=== PATIENT | female | born 2005 | race Caucasian/White ===

== ENCOUNTER 2024-10-22 17:57 | Emergency (ER) | payer OTHER, SELFPAY ==
[2024-10-22 18:00] VITALS: BP 107/75; PULSE 85; RESP 17; TEMP 36.7; O2SAT 99; BMI 34.9
--- NOTE | 2024-10-22 18:22 | ED_ITS ---
Discharge Plan Disposition Patient Disposition: Home, Self-Care Condition: Good Prescriptions Prescriptions: New cephalexin 500 mg capsule 1,000 mg PO BID 7 Days Qty: 28 0RF ondansetron 4 mg tablet,disintegrating 4 mg PO Q6H PRN (Reason: nausea and vomiting) Qty: 10 0RF Referrals Follow up/Referrals: Provider,Referral, MD [Primary Care Provider] - See instructions Activity Restrictions/Add. Instructions Additional Instructions/Restrictions: Call your family doctor to establish care for this visit to the emergency department and schedule follow-up within 48 hours to ensure improvement. If you have any worsening of your condition or any other concerning signs or symptoms, return to the emergency department or your primary care doctor for further evaluation. RED[facility]ELOPMENT SPECIALIST will be able to see the records today and compare them with your visit in a couple of weeks. Maintain follow-up with REDEVELOPMENT SPECIALIST. Be sure that you are taking a daily vitamin that contains iron and folic acid (folate) this will help baby grow without defects. Clinical Impressions Clinical Impression: Nausea and vomiting during Instructions Patient Instructions: DI for Diarrhea and Traveler's Diarrhea -- Adult, DI for Diarrhea and Traveler's Diarrhea -- Child, DI for Nausea -- Adult, DI for Nausea -- Child Print Language Print Language: [place] Discharge ED Provider: Delgado Merino General Adult HPI General Chief complaint: Nausea/Vomiting/Diarrhea Stated complaint: 15 weeks ,N/V,PEREZ Time Seen by Provider: 10/22/24 18:02 History of Present Illness HPI narrative: Please note that above description of symptoms, in this electronic medical record under categorization of recalled from ER triage doctor by RN are reflective of an initial nursing assessment, however, is not reflective of my full history and physical exam that was personally taken and clarified. Consequentially, this preceding description of symptoms, which may include the patient's categorized chief complaint in the EMR, do not reflect my personal clinical impression, and the ultimate description of history of present illness and patient stated complaints should be deferred to this section of the note. Unless stated otherwise or congruent with this section of the note, additional signs, symptoms, or incongruence should be interpreted as inaccurate with my clinical impression. Related Data Previous Rx's ?Medication ?Instructions ?Recorded cephalexin 500 mg capsule 1,000 mg (2 x 500 mg) PO BID 7 10/22/24 days #28 caps ondansetron 4 mg disintegrating 4 mg PO Q6H PRN nausea and 10/22/24 tablet vomiting #10 tabs Allergies Allergy/AdvReac Type Severity Reaction Status Date / Time No Known Allergies Allergy Verified 10/19/24 15:57 PFSH [facility] Disclaimer: The information contained in this section may have been updated after the patient was seen, as this information can be updated by other users. Social History Smoking Status: Never smoker alcohol intake: never current occupational status: unemployed Travel in the last 8 weeks: None ROS Obtained: Yes All systems reviewed & no additional complaints except as documented Physical Exam General General appearance: alert and in no apparent distress Head Head exam: atraumatic and normocephalic Eye Eye exam: Present normal appearance, PERRL and EOMI Neck Neck exam: Present normal inspection, full ROM and trachea midline Respiratory Respiratory exam: Absent respiratory distress, wheezes, stridor, accessory muscle use or prolonged expiratory phase Cardiovascular Cardiovascular exam: Present other (Pulses equal symmetric in upper and lower extremities) Abdominal Exam Abdominal exam: Present soft; Absent distention, tenderness or pulsatile mass Extremities Exam Extremities exam: Absent edema Neurological Exam Neurological exam: Present alert, oriented X3 and CN II-XII intact; Absent motor sensory deficit Skin Skin exam: Present warm and dry; Absent diaphoresis or erythema Medical Decision Making Medical Records Medical records reviewed: Yes I reviewed the patient's medical records. Screening: Per USPSTF and CDC recommendations, given the prevalence of disease in our region, it is our hospital?s policy to screen for HIV and viral Hepatitis for all patients aged 18 and over and those with ongoing risk factors. Maximo Inquiry Pt receiving controlled substance: No Maximo was queried for this patient: No Vital Signs: 10/22/24 18:00 10/22/24 20:29 Temperature 98.1 F 97.9 F Temperature Source Oral Pulse Rate 72 Pulse Rate [Left Radial] 85 Respiratory Rate 17 18 Blood Pressure 128/74 Blood Pressure [Right Arm] 107/75 L Blood Pressure Mean [Right Arm] 85 Blood Pressure Source Automatic Cuff Blood Pressure Source [Right Arm] Automatic Cuff Blood Pressure Position Sitting Blood Pressure Position [Right Arm] Sitting 02 Sat by Pulse Oximetry 99 Oxygen Delivery Method Room Air Room Air Lab Data Lab Results 10/22/24 18:27: Urine Color Yellow, Urine Appearance Clear, Urine pH 6.0, Ur Specific [place] 1.020, Urine Protein Negative, Urine Glucose (UA) Negative, Urine Ketones Negative, Urine Blood Negative, Urine Nitrate Positive A, Urine Bilirubin Negative, Urine Urobilinogen 0.2, Ur Leukocyte Esterase 1+ A, Urine RBC None, Urine WBC 3-5, Ur Squamous Epith Cells 5-10, Ur Transition Epith Cell 3-5, Urine Bacteria 4+ 10/22/24 19:04: WBC 9.1, RBC 3.99 L, Hgb 12.9, Hct 37.1, MCV 93.0, MCH 32.3 H, MCHC 34.8, RDW 11.9, Plt Count 218, MPV 9.7, Neut % (Auto) 57.5, Lymph % (Auto) 30.5, [place] % (Auto) 10.5 H, Eos % (Auto) 0.8, Baso % (Auto) 0.5, Neut # (Auto) 5.2, Lymph # (Auto) 2.8, [place] # (Auto) 1.0, Eos # (Auto) 0.1, Baso # (Auto) 0.1, Sodium 136, Potassium 3.9, Chloride 107, Carbon Dioxide 21 L, Anion Gap 11.9, BUN 7, Creatinine 0.60, Estimated Creat Clear 198, Estimated GFR 127, Est GFR ( Amer) 154, Glucose 95, Calcium 9.2, Total Bilirubin 0.3, AST 22, ALT 14, Alkaline Phosphatase 61, Total Protein 6.9, Albumin 4.0, Globulin 2.9, Albumin/Globulin Ratio 1.4, HCG, Quant [id number] H 10/22/24 19:04 10/22/24 19:04 Orders (Tests/Meds): ED MEDICATIONS Discontinued Medications Generic Name Dose Route Start Last Admin Trade Name Freq PRN Reason Stop Dose Admin Cephalexin HCl 1,000 mg 10/22/24 18:56 10/22/24 19:12 Cephalexin 500mg Capsule PO 10/22/24 18:57 1,000 mg ONCE ONE Administration Ondansetron HCl 4 mg 10/22/24 18:23 10/22/24 19:12 Ondansetron 4mg/2ml Vial IV 10/22/24 18:24 4 mg ONCE ONE Administration ORDERS Category Date Time Status POCUS Point of Care (ER Only) Stat Exams 10/22/24 18:17 Completed CBC w/Auto Diff [Complete Blood Count Auto Diff] Stat Lab 10/22/24 19:04 Completed CMP [Comprehensive Metabolic Panel] Stat Lab 10/22/24 19:04 Completed HCG,Quantitative Stat Lab 10/22/24 19:04 Completed UA [Urinalysis and Microscopic] Stat Lab 10/22/24 18:27 Completed Urine Culture Stat Micro 10/22/24 18:27 Received Medical Decision Narrative: 19-year-old G1, P0 female presenting with vomiting. She states she is about 14 weeks , but is not sure. She was living in [place], now living down here and has not seen REDEVELOPMENT SPECIALIST. Supposed to see them in a couple of weeks. States that she has been vomiting everything I been trying to eat or drink, for the past 2 weeks. No abdominal pain, vaginal bleeding or discharge, has not felt baby move yet. Has not noticed anything that makes it better or worse and has not seen a family doctor regarding of this. History was obtained via conversation with patient. On arrival, patient hemodynamically stable, alert, oriented x4, appropriate, GCS 15, moving all extremities spontaneously, pupils equal and reactive to light. Full physical exam performed and significant for well-appearing female no acute distress. Appears anxious. Physical exam unremarkable, she is nontachycardic, normotensive, abdomen is soft. Lungs are clear and speaking in full sentences. Differential includes hyperemesis gravidarum, urinary tract infection, metabolic abnormality, endocrinologic abnormality, among others. Patient was given IV Zofran for symptomatic management and correction of underlying abnormalities. Workup independently interpreted and significant for nonactionable hematologic labs. Urinalysis with nitrate positive urinary tract infection. Given Keflex for this. Kidney function normal. hCG nearly 132,000. on independent interpretation of imaging, patient has viable intrauterine with heart rate in the 170s. On reevaluation, patient resting comfortably, tolerating ample p.o. intake and very clinically well. Given patient presentation, workup, history, this most likely represents gastritis versus dyspepsia in . Because patient at baseline without signs or symptoms of clinical decompensation, deemed appropriate for discharge. Results were relayed to patient who voiced understanding and were agreeable to outpatient management and follow up. I discussed my clinical impression with patient and answered all questions. At this time, the evidence for any other entities in the differential is insufficient to warrant any further testing or ED observation. This was explained as well. Advisory was given that persistent or worsening symptoms require further evaluation. I confirmed the understanding of this discussion. Travel Cota disclaimer Much of this encounter note is an electronic account executive key accounts spoken language to printed text. Electronic account executive key accounts of the spoken language may permit errors. Although I have reviewed the note, some errors may still exist. Procedures Limited Ultrasound Indication:: Limited OB ultrasound Indication: Positive home test, vomiting Identified structures: -Uterus -Left adnexa -Right adnexa -Pouch of Merlin Findings: Uterus: Definitive IUP with FHR in the 170s Right adnexa: -Normal Left adnexa: -Normal Cul de sac: -free fluid absent Impression: -IUP: Present with fhr in the 170s -Ectopic : Absent -Free fluid: Absent Images were saved to permanent archive The study was technically adequate CPT Transabdominal: 38910-71 This study was performed by me, and I personally interpreted all images/videos. Based on my clinical judgement, these images were adequate and did not necessitate further imaging Critical Care Critical Care Time Critical Care Time: No
[2024-10-22 18:32] LABS: Microscopic, Urine URINE MICROSCOPIC (MICROSCOPIC)
[2024-10-22 18:34] LABS: Appearance,Urine CLEAR (Clear); Bilirubin,Urine Negative (Negative); Blood, Urine Negative (Negative); Color,Urine YELLOW (Yellow); Glucose,Urine (UA) Negative (Negative); Ketones,Urine Negative (Negative); Leukocyte Esterase,Urine 1+ (Negative); Nitrate,Urine POSITIVE (Negative); Protein,Urine Negative (Negative); Urobilinogen,Urine 0.2 EU/dl (0.2)
[2024-10-22 19:12] LABS: Basophils # 0.1 K/mm3 (0-0.2); Basophils % 0.5 % (0.1-2.0); Eosinophils # 0.1 K/mm3 (0.0-0.4); Eosinophils % 0.8 % (0.1-12.0); Hematocrit 37.1 % (37.0-47.0); Hemoglobin 12.9 g/dL (12.2-16.2); Lymphocytes # 2.8 K/mm3 (0.7-4.5); Lymphocytes % 30.5 % (10-50); Mean Corpuscular HGB Conc 34.8 g/dL (31.8-35.4); Mean Corpuscular Hemoglobin 32.3 pg (27.0-31.2); Mean Platelet Volume 9.7 fl (7.4-10.4); Monocytes % 10.5 % (1.7-9.3); Neutrophils # 5.2 K/mm3 (1.8-7.8); Neutrophils % 57.5 % (37.0-80.0); Nucleated Red Blood Cells # 0 10^3/uL; Nucleated Red Blood Cells % 0 %; Platelet Count 218 K/mm3 (142-424); Red Blood Count 3.99 M/mm3 (4.20-5.40); Red Cell Distribution Width 11.9 % (11.5-17.5); Red Cell Distribution Width-SD 40.8 fL; White Blood Count 9.1 K/mm3 (4.5-13.0)
[2024-10-22] MEDS: ONDANSETRON 4MG/2ML VIAL 4 MG IV (19:12)
[2024-10-22] MEDS: cephALEXin 500MG CAPSULE 1000 MG PO (19:12)
[2024-10-22 19:16] LABS: Bacteria,Urine 4+ /lpf
[2024-10-22 19:28] LABS: Chloride 107 mmol/L (98-107); Potassium 3.9 mmoL/L (3.5-5.1); Sodium 136 mmol/L (136-145)
[2024-10-22 19:30] LABS: Blood Urea Nitrogen 7 mg/dl (7-17); Creatinine Clearance Estimated 198 mL/min (50-200); Estimated Glomerular Filt Rate 127 ml/min (>60); GFR (African American) 154 ML/MIN (>60)
[2024-10-22 19:31] LABS: Alanine Aminotransferase 14 U/L (12-78); Albumin/Globulin Ratio 1.4 (1.1-1.8); Alkaline Phosphatase 61 U/L (38-126); Anion Gap 11.9 mEq/L (5-15); Aspartate Amino Transferase 22 U/L (14-36); Bilirubin,Total 0.3 mg/dl (0.2-1.3); Calcium 9.2 mg/dl (8.4-10.2); Carbon Dioxide 21 mmol/L (22.0-30.0); Globulin 2.9 g/dL (1.3-3.2); Glucose 95 mg/dl (74-100); Total Protein,Serum 6.9 g/dl (6.3-8.2)
[2024-10-22 20:29] VITALS: BP 128/74; PULSE 72; RESP 18; TEMP 36.6; O2SAT 96
[2024-10-22 20:45] LABS: HCG,Quantitative 131970 mIU/ml (0-5.42)
--- NOTE | 2024-10-24 16:56 | PC.NURSE ---
URINE CULTURE DISCUSSED WITH DR EARL, NO NEW ORDERS
--- NOTE | 2024-10-27 10:41 | PC.NURSE ---
I spoke with about the pts finalized urine culture results. No changes needed to the pts treatment plan.
--- NOTE | 2024-11-04 13:58 | SW/DCPLANNER ---
I received a phone call from Dr Lang stating that patient does not currently have any running water. Patient is agreeable to community resources. I did reach out to [employer] and they stated they would be speaking w/ patient and [employer] and attempt to provide assistance. I also have a phone call out to the [facility] program. I am waiting to hear back from [facility] regarding services.
== END 2024-10-22 20:32 | disposition home or self-care (01) ==
PROVIDERS: Emergency Provider Emergency Medicine
DX: O21.9 Vomiting of pregnancy, unspecified (principal); O23.42 Unspecified infection of urinary tract in pregnancy, second trimester; Z3A.14 14 weeks gestation of pregnancy
CPT/HCPCS: 80053; 81001; 84702; 85025; 87086; 87088; 87186; 96374; 99284; J2405

== ENCOUNTER 2024-11-05 11:10 | Outpatient (CLI) | payer OTHER, SELFPAY ==
[2024-11-05 11:56] LABS: Basophils % 0.4 % (0.1-2.0); Eosinophils # 0.1 Kmm3 (0.0-0.4); Eosinophils % 1.1 % (0.1-12.0); Hematocrit 34.8 % (37.0-47.0); Hemoglobin 12.4 g/dL (12.2-16.2); Lymphocytes # 2.2 K/mm3 (0.7-4.5); Lymphocytes % 29.9 % (10-50); Mean Corpuscular HGB Conc 35.6 g/dL (31.8-35.4); Mean Corpuscular Hemoglobin 32.7 pg (27.0-31.2); Mean Corpuscular Volume 91.8 fl (81-99); Mean Platelet Volume 10.1 fl (7.4-10.4); Monocytes # 0.5 K/mm3 (0.1-1.0); Monocytes % 6.5 % (1.7-9.3); Neutrophils # 4.5 K/mm3 (1.8-7.8); Neutrophils % 61.7 % (37.0-80.0); Nucleated Red Blood Cells # 0 10^3/uL; Nucleated Red Blood Cells % 0 %; Platelet Count 218 K/mm3 (142-424); Red Blood Count 3.79 M/mm3 (4.20-5.40); Red Cell Distribution Width 11.9 % (11.5-17.5); Red Cell Distribution Width-SD 40.3 fL; White Blood Count 7.3 K/mm3 (4.5-13.0)
[2024-11-05 13:01] LABS: HIV Combo NEGATIVE (Negative)
[2024-11-05 13:08] LABS: Hepatitis C Ab Qual. W/ RFX NEGATIVE (Negative)
[2024-11-05 15:37] LABS: RPR W/RFX Titers Nonreactive (Nonreactive)
[2024-11-06 06:19] LABS: Hepatitis B Surface Antigen Negative (Negative); Rubella Antibodies, IgG <0.90 index (Immune >0.99)
== END 2024-11-05 23:59 | disposition home or self-care (01) ==
LOC: LAB 11:10
PROVIDERS: Visit Provider Obstetrics & Gynecology
DX: Z34.01 Encounter for supervision of normal first pregnancy, first trimester (principal)
CPT/HCPCS: 36415; 85025; 86592; 86762; 86803; 86850; 87340; 87389

== ENCOUNTER 2024-11-09 10:58 | Outpatient (CLI) | payer OTHER, SELFPAY ==
[2024-11-09 13:33] LABS: HCG,Quantitative 83596 mIU/ml (0-5.42)
[2024-11-10 08:16] LABS: Progesterone 13.4 ng/mL (.)
== END 2024-11-09 23:59 | disposition home or self-care (01) ==
LOC: LAB 10:59
PROVIDERS: Visit Provider Obstetrics & Gynecology
DX: Z32.01 Encounter for pregnancy test, result positive (principal)
CPT/HCPCS: 36415; 84144; 84702

== ENCOUNTER 2024-11-16 15:42 | Emergency (ER) | payer OTHER, SELFPAY ==
[2024-11-16] VITALS (14 sets, daily range): BP systolic 91–127; BP diastolic 62–80; PULSE 78–104; RESP 13–23; TEMP 36.7–36.9; O2SAT 97–100; BMI 35.1
--- NOTE | 2024-11-16 15:48 | HMH.EDGENADL ---
Discharge Plan Disposition Patient Disposition: Home, Self-Care Condition: Good Prescriptions Prescriptions: No Action olanzapine [Zyprexa] 5 mg tablet 5 mg PO HS Qty: 30 2RF olanzapine [Zyprexa] 5 mg tablet 5 mg PO DAILY Qty: 30 2RF ondansetron 4 mg tablet,disintegrating 4 mg PO Q6H PRN (Reason: nausea and vomiting) Qty: 10 0RF Referrals Follow up/Referrals: Provider,Referral, MD [Primary Care Provider] - See instructions Activity Restrictions/Add. Instructions Additional Instructions/Restrictions: As we discussed you need to follow-up with both your [facility] PRESIDENT PROCESS as well as your PCP for recheck. I recommend taking your blood pressure several times throughout the day to keep an accurate log. Please try to stay hydrated. If you have any new or worsening signs or symptoms follow-up with your PCP return to the ER as needed. Clinical Impressions Clinical Impression: Near syncope Print Language Print Language: Yemeni Discharge ED Provider: Delgado Merino General Adult HPI <MARC Rousseau - Last Filed: 11/16/24 19:50> General Chief complaint: Dizziness Stated complaint: 12 weeks dizziness,ears roaring Time Seen by Provider: 11/16/24 15:48 History of Present Illness HPI narrative: Patient presents for evaluation of lightheadedness. Patient is 12 weeks . She has not worked since July of this year. 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 She notes that several times she felt lightheaded and dizzy. She had to sit down several times. She never however passed out. She does have a past medical history of anxiety disorder depression disorder bipolar disorder and is on olanzapine and Zofran. She denies any chest pain shortness of breath fever chills hemoptysis nausea vomiting diarrhea. Related Data Previous Rx's ?Medication ?Instructions ?Recorded ondansetron 4 mg disintegrating 4 mg PO Q6H PRN nausea and 10/22/24 tablet vomiting #10 tabs olanzapine 5 mg tablet (Zyprexa) 5 mg PO HS #30 tabs 11/04/24 olanzapine 5 mg tablet (Zyprexa) 5 mg PO DAILY #30 tabs 11/05/24 Allergies Allergy/AdvReac Type Severity Reaction Status Date / Time No Known Allergies Allergy Verified 11/04/24 11:46 PFSH <MARC Rousseau - Last Filed: 11/16/24 19:50> [facility] Disclaimer: The information contained in this section may have been updated after the patient was seen, as this information can be updated by other users. Medical History (Updated 11/16/24 @ 18:06 by MARC Rousseau) Hx of bipolar disorder History of depression Hx of anxiety disorder Hx of borderline personality disorder Surgical History No significant past surgical history Social History Smoking Status: Never smoker alcohol intake: never current occupational status: unemployed Travel in the last 8 weeks?: None Have you lived/traveled outside [place] in past 30 days?: No Contact w/someone who lives/traveled outside US past 30 days?: No Exposure to someone with infectious disease in past 14 days?: No Do you have a fever (greater than 100.4 F or 38 C)?: No Have you tested positive for COVID-19?: No Exposed to someone with COVID-19 in past 14 days?: No Do you have a sore throat?: No Do you have a cough?: No Do you have any weakness?: No Do you have any diarrhea?: No Are you experiencing any unusual bleeding?: No Do you have any muscle aches/pain?: No Do you have any abdominal pain?: No Are you experiencing loss of taste or smell?: No <MARC Rousseau - Last Filed: 11/16/24 19:50> ROS Obtained: Yes Systems reviewed as appropriate & no additional complaints except as documented Physical Exam <MARC Rousseau - Last Filed: 11/16/24 19:50> General General appearance: alert and in no apparent distress Respiratory Respiratory exam: Present normal lung sounds bilaterally Cardiovascular Cardiovascular exam: Present regular rate Neurological Exam Neurological exam: Present alert and oriented X3 Medical Decision Making <MARC Rousseau - Last Filed: 11/16/24 19:50> Medical Records Medical records reviewed: Yes I reviewed the patient's medical records. Screening: Per USPSTF and CDC recommendations, given the prevalence of disease in our region, it is our hospital?s policy to screen for HIV and viral Hepatitis for all patients aged 18 and over and those with ongoing risk factors. Maximo Inquiry Pt receiving controlled substance: No Vital Signs: 11/16/24 15:48 11/16/24 15:50 11/16/24 15:50 Temperature 98.4 F Temperature Source Oral Pulse Rate 98 H 90 Pulse Rate [Right] 104 H Respiratory Rate 18 Blood Pressure 125/78 127/80 Blood Pressure [Right Arm] 125/78 Blood Pressure Mean Blood Pressure Mean [Right Arm] 93 02 Sat by Pulse Oximetry 100 99 99 Oxygen Delivery Method Room Air 11/16/24 16:00 11/16/24 16:10 11/16/24 16:20 Temperature Temperature Source Pulse Rate 86 81 93 H Pulse Rate [Right] Respiratory Rate 20 18 17 Blood Pressure 116/78 110/73 113/79 Blood Pressure [Right Arm] Blood Pressure Mean Blood Pressure Mean [Right Arm] 02 Sat by Pulse Oximetry 99 99 97 Oxygen Delivery Method Room Air 11/16/24 16:30 11/16/24 16:40 11/16/24 16:51 Temperature Temperature Source Pulse Rate 82 78 Pulse Rate [Right] Respiratory Rate 20 19 15 Blood Pressure 117/70 98/71 L 100/63 L Blood Pressure [Right Arm] Blood Pressure Mean Blood Pressure Mean [Right Arm] 02 Sat by Pulse Oximetry 99 98 Oxygen Delivery Method Room Air Room Air 11/16/24 17:00 11/16/24 17:10 11/16/24 17:20 Temperature Temperature Source Pulse Rate 79 Pulse Rate [Right] Respiratory Rate 20 22 Blood Pressure 94/71 L 92/68 L 91/62 L Blood Pressure [Right Arm] Blood Pressure Mean 75 Blood Pressure Mean [Right Arm] 02 Sat by Pulse Oximetry 100 Oxygen Delivery Method Room Air 11/16/24 17:30 11/16/24 17:40 11/16/24 17:40 Temperature Temperature Source Pulse Rate 80 78 79 Pulse Rate [Right] Respiratory Rate 19 23 Blood Pressure 93/65 L 107/69 L 107/69 L Blood Pressure [Right Arm] Blood Pressure Mean 79 Blood Pressure Mean [Right Arm] 02 Sat by Pulse Oximetry 99 100 99 Oxygen Delivery Method Room Air Room Air Room Air 11/16/24 18:12 Temperature 98.0 F Temperature Source Pulse Rate 79 Pulse Rate [Right] Respiratory Rate 13 Blood Pressure 107/79 L Blood Pressure [Right Arm] Blood Pressure Mean Blood Pressure Mean [Right Arm] 02 Sat by Pulse Oximetry Oxygen Delivery Method Lab Data Lab results reviewed: Yes I reviewed the patient's lab results. Lab Results 11/16/24 15:47: Urine Color Yellow, Urine Appearance Sl cloudy, Urine pH 7.0, Ur Specific Truxton 1.020, Urine Protein Negative, Urine Glucose (UA) Negative, Urine Ketones Trace, Urine Blood Negative, Urine Nitrate Negative, Urine Bilirubin Negative, Urine Urobilinogen 1.0, Ur Leukocyte Esterase Trace, Urine RBC 5-10, Urine WBC 10-20, Ur Squamous Epith Cells 20-50, Urine Bacteria 2+, Urine Mucus 1+ 11/16/24 16:38: WBC 10.4, RBC 3.76 L, Hgb 12.2, Hct 35.3 L, MCV 93.9, MCH 32.4 H, MCHC 34.6, RDW 12.2, Plt Count 206, MPV 10.1, Neut % (Auto) 77.0, Lymph % (Auto) 15.4, Sumner % (Auto) 6.4, Eos % (Auto) 0.3, Baso % (Auto) 0.3, Neut # (Auto) 8.0 H, Lymph # (Auto) 1.6, Sumner # (Auto) 0.7, Eos # (Auto) 0.0, Baso # (Auto) 0.0, Sodium 134 L, Potassium 3.9, Chloride 109 H, Carbon Dioxide 23, Anion Gap 5.9, BUN 6 L, Creatinine 0.60, Estimated Creat Clear 199, Estimated GFR 127, Est GFR ( Amer) 154, Glucose 98, Calcium 9.4, Magnesium 1.7, Total Bilirubin 0.4, AST 44 H, ALT 37, Alkaline Phosphatase 54, Total Protein 6.4, Albumin 3.8, Globulin 2.6, Albumin/Globulin Ratio 1.5 11/16/24 16:38 11/16/24 16:38 Orders (Tests/Meds): ED MEDICATIONS Discontinued Medications Generic Name Dose Route Start Last Admin Trade Name Freq PRN Reason Stop Dose Admin Sodium Chloride 1,000 mls @ 999 mls/hr 11/16/24 16:09 11/16/24 16:34 Sod Chlor 0.9% 1000ml Bag IV 11/16/24 17:09 999 mls/hr .Q1H1M ONE Administration Ondansetron HCl 4 mg 11/16/24 16:09 11/16/24 16:34 Ondansetron 4mg/2ml Vial IV 11/16/24 16:10 4 mg ONCE ONE Administration ORDERS Category Date Time Status CBC w/Auto Diff [Complete Blood Count Auto Diff] Stat Lab 11/16/24 16:38 Completed CMP [Comprehensive Metabolic Panel] Stat Lab 11/16/24 16:38 Completed Magnesium Stat Lab 11/16/24 16:38 Completed UA [Urinalysis and Microscopic] Stat Lab 11/16/24 15:47 Completed Urine Culture Stat Micro 11/16/24 15:47 Received Medical Decision Narrative: In summary patient is a 19-year-old female who presents to the emergency department for evaluation of lightheadedness and dizziness. Patient is initially hemodynamically stable with a blood pressure 125/78 heart rate 98 with normal sinus rhythm on the bedside monitor breathing 18 times a minute satting at 100% on room air upon arrival, afebrile at 98.4. Physical exam reveals a well-nourished well-developed overweight 19-year-old female, with a BMI of 35, who otherwise is in no acute distress. Breath sounds clear and equal bilateral to the bases without adventitious sounds, heart sounds are S1-S2 regular rate and rhythm without murmurs gallops rubs or thrills and no dependent edema noted. Abdomen soft nontender no rebound or guarding no rigidity. Bowel sounds normal active. Cranial nerves II through XII intact grossly to exam Guadalupe Coma Score 15. Patient moves all 4 extremities and is neurovascularly intact in all 4 extremities. She has no focal neurologic deficits.. Differential diagnosis includes vasovagal syndrome versus electrolyte abnormality versus cardiac arrhythmia etc. Initial workup will be conducted with hematologic labs urinalysis twelve-lead EKG. Initial interventions include crystalloid bolus and Zofran. Initial workup reviewed by me shows that her white count is 10.4 and her hemoglobin Mattock at 12.2 and 35.3 respectively with an absolute neutrophil count of 8.0 the remainder of her hematologic labs are nonactionable, urinalysis is negative for nitrites positive for ketones and an trace leukocyte Estrace, microscopic exam shows 5-10 red cells 10-20 white cells 20-50 epithelial cells indicating contamination with 2+ bacteria. However patient has no urinary symptoms currently so we will await urine culture results with close follow-up with PCP should she have any dysuria symptoms.. Upon repeat evaluation patient reports feeling better and is actually ambulatory without symptoms and is tolerating oral intake. Given this patient is appropriate for discharge with close follow-up with both [facility]PRENTICE and her PCP. Patient verbalized understanding and agreement. <Delgado Merino MD - Last Filed: 11/16/24 21:34> Vital Signs: 11/16/24 15:48 11/16/24 15:50 11/16/24 15:50 Temperature 98.4 F Temperature Source Oral Pulse Rate 98 H 90 Pulse Rate [Right] 104 H Respiratory Rate 18 Blood Pressure 125/78 127/80 Blood Pressure [Right Arm] 125/78 Blood Pressure Mean Blood Pressure Mean [Right Arm] 93 02 Sat by Pulse Oximetry 100 99 99 Oxygen Delivery Method Room Air 11/16/24 16:00 11/16/24 16:10 11/16/24 16:20 Temperature Temperature Source Pulse Rate 86 81 93 H Pulse Rate [Right] Respiratory Rate 20 18 17 Blood Pressure 116/78 110/73 113/79 Blood Pressure [Right Arm] Blood Pressure Mean Blood Pressure Mean [Right Arm] 02 Sat by Pulse Oximetry 99 99 97 Oxygen Delivery Method Room Air 11/16/24 16:30 11/16/24 16:40 11/16/24 16:51 Temperature Temperature Source Pulse Rate 82 78 Pulse Rate [Right] Respiratory Rate 20 19 15 Blood Pressure 117/70 98/71 L 100/63 L Blood Pressure [Right Arm] Blood Pressure Mean Blood Pressure Mean [Right Arm] 02 Sat by Pulse Oximetry 99 98 Oxygen Delivery Method Room Air Room Air 11/16/24 17:00 11/16/24 17:10 11/16/24 17:20 Temperature Temperature Source Pulse Rate 79 Pulse Rate [Right] Respiratory Rate 20 22 Blood Pressure 94/71 L 92/68 L 91/62 L Blood Pressure [Right Arm] Blood Pressure Mean 75 Blood Pressure Mean [Right Arm] 02 Sat by Pulse Oximetry 100 Oxygen Delivery Method Room Air 11/16/24 17:30 11/16/24 17:40 11/16/24 17:40 Temperature Temperature Source Pulse Rate 80 78 79 Pulse Rate [Right] Respiratory Rate 19 23 Blood Pressure 93/65 L 107/69 L 107/69 L Blood Pressure [Right Arm] Blood Pressure Mean 79 Blood Pressure Mean [Right Arm] 02 Sat by Pulse Oximetry 99 100 99 Oxygen Delivery Method Room Air Room Air Room Air 11/16/24 18:12 Temperature 98.0 F Temperature Source Pulse Rate 79 Pulse Rate [Right] Respiratory Rate 13 Blood Pressure 107/79 L Blood Pressure [Right Arm] Blood Pressure Mean Blood Pressure Mean [Right Arm] 02 Sat by Pulse Oximetry Oxygen Delivery Method Lab Data Lab Results 11/16/24 15:47: Urine Color Yellow, Urine Appearance Sl cloudy, Urine pH 7.0, Ur Specific Truxton 1.020, Urine Protein Negative, Urine Glucose (UA) Negative, Urine Ketones Trace, Urine Blood Negative, Urine Nitrate Negative, Urine Bilirubin Negative, Urine Urobilinogen 1.0, Ur Leukocyte Esterase Trace, Urine RBC 5-10, Urine WBC 10-20, Ur Squamous Epith Cells 20-50, Urine Bacteria 2+, Urine Mucus 1+ 11/16/24 16:38: WBC 10.4, RBC 3.76 L, Hgb 12.2, Hct 35.3 L, MCV 93.9, MCH 32.4 H, MCHC 34.6, RDW 12.2, Plt Count 206, MPV 10.1, Neut % (Auto) 77.0, Lymph % (Auto) 15.4, Sumner % (Auto) 6.4, Eos % (Auto) 0.3, Baso % (Auto) 0.3, Neut # (Auto) 8.0 H, Lymph # (Auto) 1.6, Sumner # (Auto) 0.7, Eos # (Auto) 0.0, Baso # (Auto) 0.0, Sodium 134 L, Potassium 3.9, Chloride 109 H, Carbon Dioxide 23, Anion Gap 5.9, BUN 6 L, Creatinine 0.60, Estimated Creat Clear 199, Estimated GFR 127, Est GFR ( Amer) 154, Glucose 98, Calcium 9.4, Magnesium 1.7, Total Bilirubin 0.4, AST 44 H, ALT 37, Alkaline Phosphatase 54, Total Protein 6.4, Albumin 3.8, Globulin 2.6, Albumin/Globulin Ratio 1.5 Orders (Tests/Meds): ED MEDICATIONS Discontinued Medications Generic Name Dose Route Start Last Admin Trade Name Freq PRN Reason Stop Dose Admin Sodium Chloride 1,000 mls @ 999 mls/hr 11/16/24 16:09 11/16/24 16:34 Sod Chlor 0.9% 1000ml Bag IV 11/16/24 17:09 999 mls/hr .Q1H1M ONE Administration Ondansetron HCl 4 mg 11/16/24 16:09 11/16/24 16:34 Ondansetron 4mg/2ml Vial IV 11/16/24 16:10 4 mg ONCE ONE Administration ORDERS Category Date Time Status CBC w/Auto Diff [Complete Blood Count Auto Diff] Stat Lab 11/16/24 16:38 Completed CMP [Comprehensive Metabolic Panel] Stat Lab 11/16/24 16:38 Completed Magnesium Stat Lab 11/16/24 16:38 Completed UA [Urinalysis and Microscopic] Stat Lab 11/16/24 15:47 Completed Urine Culture Stat Micro 11/16/24 15:47 Received ECG Data Tracing #1: I reviewed this ECG and interpreted as documented below: (Sinus rhythm 88/min with CO 136, QRS 80, QTc 395. Normal axis and no acute ischemic changes. No obvious electrical abnormalities.) Medical Decision Narrative: In summary patient is a 19-year-old female who presents to the emergency department for evaluation of lightheadedness and dizziness. Patient is initially hemodynamically stable with a blood pressure 125/78 heart rate 98 with normal sinus rhythm on the bedside monitor breathing 18 times a minute satting at 100% on room air upon arrival, afebrile at 98.4. Physical exam reveals a well-nourished well-developed overweight 19-year-old female, with a BMI of 35, who otherwise is in no acute distress. Breath sounds clear and equal bilateral to the bases without adventitious sounds, heart sounds are S1-S2 regular rate and rhythm without murmurs gallops rubs or thrills and no dependent edema noted. Abdomen soft nontender no rebound or guarding no rigidity. Bowel sounds normal active. Cranial nerves II through XII intact grossly to exam Guadalupe Coma Score 15. Patient moves all 4 extremities and is neurovascularly intact in all 4 extremities. She has no focal neurologic deficits.. Differential diagnosis includes vasovagal syndrome versus electrolyte abnormality versus cardiac arrhythmia etc. Initial workup will be conducted with hematologic labs urinalysis twelve-lead EKG. Initial interventions include crystalloid bolus and Zofran. Initial workup reviewed by me shows that her white count is 10.4 and her hemoglobin Mattock at 12.2 and 35.3 respectively with an absolute neutrophil count of 8.0 the remainder of her hematologic labs are nonactionable, urinalysis is negative for nitrites positive for ketones and an trace leukocyte Estrace, microscopic exam shows 5-10 red cells 10-20 white cells 20-50 epithelial cells indicating contamination with 2+ bacteria. However patient has no urinary symptoms currently so we will await urine culture results with close follow-up with PCP should she have any dysuria symptoms.. Upon repeat evaluation patient reports feeling better and is actually ambulatory without symptoms and is tolerating oral intake. Given this patient is appropriate for discharge with close follow-up with both [facility]PRENTICE and her PCP. Patient verbalized understanding and agreement. I was consulted by the CED, and we discussed the complexity of the problems being addressed. I approved the treatment and management plan for this patient's care in the Emergency Department, thus performing a substantive portion of the medical decision making. Delgado Merino MD Critical Care <MARC Rousseau - Last Filed: 11/16/24 19:50> Critical Care Time Critical Care Time: No
--- NOTE | 2024-11-16 15:51 | ECG_ITS ---
APPROVED REPORT Exam: Resting ECG HR:88 bpm ECG Measurements Heart Rate 88 AXES SC 136 P 45 QRSd 80 QRS 48 QT 350 T 23 QTc 395 Conclusion Sinus rhythm Electronically signed by : HAWA EARL, 11/16/2024 23:10:20
[2024-11-16 16:14] LABS: Microscopic, Urine URINE MICROSCOPIC (MICROSCOPIC)
[2024-11-16 16:17] LABS: Appearance,Urine SL CLOUDY (Clear); Bilirubin,Urine Negative (Negative); Blood, Urine Negative (Negative); Color,Urine YELLOW (Yellow); Glucose,Urine (UA) Negative (Negative); Ketones,Urine TRACE (Negative); Leukocyte Esterase,Urine TRACE (Negative); Nitrate,Urine Negative (Negative); Protein,Urine Negative (Negative)
[2024-11-16] MEDS: 0.9 % SODIUM CHLORIDE 1000ML 1,000 ML 999 ML IV (16:34)
[2024-11-16] MEDS: ONDANSETRON 4MG/2ML VIAL 4 MG IV (16:34)
[2024-11-16 16:54] LABS: Bacteria,Urine 2+ /lpf; Squamous Epithelial Cell,Urine 20-50 #/hpf (0-5)
[2024-11-16 16:55] LABS: Mucus,Urine 1+ /lpf
[2024-11-16 16:56] LABS: Basophils % 0.3 % (0.1-2.0); Eosinophils % 0.3 % (0.1-12.0); Hematocrit 35.3 % (37.0-47.0); Hemoglobin 12.2 g/dL (12.2-16.2); Immature Granulocytes # 0.06 10^3uL; Immature Granulocytes % 0.6 %; Lymphocytes # 1.6 K/mm3 (0.7-4.5); Lymphocytes % 15.4 % (10-50); Mean Corpuscular HGB Conc 34.6 g/dL (31.8-35.4); Mean Corpuscular Hemoglobin 32.4 pg (27.0-31.2); Mean Corpuscular Volume 93.9 fl (81-99); Mean Platelet Volume 10.1 fl (7.4-10.4); Monocytes # 0.7 K/mm3 (0.1-1.0); Monocytes % 6.4 % (1.7-9.3); Nucleated Red Blood Cells # 0 10^3/uL; Nucleated Red Blood Cells % 0 %; Platelet Count 206 K/mm3 (142-424); Red Blood Count 3.76 M/mm3 (4.20-5.40); Red Cell Distribution Width 12.2 % (11.5-17.5); Red Cell Distribution Width-SD 42.3 fL; White Blood Count 10.4 K/mm3 (4.5-13.0)
[2024-11-16 17:05] LABS: Alanine Aminotransferase 37 U/L (12-78); Albumin Level 3.8 g/dl (3.5-5.0); Albumin/Globulin Ratio 1.5 (1.1-1.8); Alkaline Phosphatase 54 U/L (38-126); Anion Gap 5.9 mEq/L (5-15); Aspartate Amino Transferase 44 U/L (14-36); Bilirubin,Total 0.4 mg/dl (0.2-1.3); Blood Urea Nitrogen 6 mg/dl (7-17); Calcium 9.4 mg/dl (8.4-10.2); Carbon Dioxide 23 mmol/L (22.0-30.0); Chloride 109 mmol/L (98-107); Creatinine Clearance Estimated 199 mL/min (50-200); Estimated Glomerular Filt Rate 127 ml/min (>60); GFR (African American) 154 ML/MIN (>60); Globulin 2.6 g/dL (1.3-3.2); Glucose 98 mg/dl (74-100); Potassium 3.9 mmoL/L (3.5-5.1); Sodium 134 mmol/L (136-145); Total Protein,Serum 6.4 g/dl (6.3-8.2)
[2024-11-16 17:10] LABS: Magnesium 1.7 mg/dl (1.6-2.3)
== END 2024-11-16 18:13 | disposition home or self-care (01) ==
PROVIDERS: Physician Assistant; Emergency Provider Emergency Medicine
DX: O26.811 Pregnancy related exhaustion and fatigue, first trimester (principal); R55 Syncope and collapse; R42 Dizziness and giddiness; Z3A.12 12 weeks gestation of pregnancy
CPT/HCPCS: 80053; 81001; 83735; 85025; 87086; 93005; 96365; 96374; 99284; J2405; J7030

== ENCOUNTER 2024-11-18 09:07 | Emergency (ER) | payer OTHER, SELFPAY ==
[2024-11-18 09:13] VITALS: BP 112/68; PULSE 100; RESP 16; TEMP 36.4; O2SAT 96; BMI 34.9
[2024-11-18 09:22] LABS: Coronavirus 19, PCR Not Detected (NotDetected); Influenza A, PCR Not Detected (NotDetected); Influenza B, PCR Not Detected (NotDetected)
--- NOTE | 2024-11-18 09:30 | ED_ITS ---
Discharge Plan Disposition Patient Disposition: Home, Self-Care Condition: Good Prescriptions Prescriptions: No Action olanzapine [Zyprexa] 5 mg tablet 5 mg PO HS Qty: 30 2RF olanzapine [Zyprexa] 5 mg tablet 5 mg PO DAILY Qty: 30 2RF ondansetron 4 mg tablet,disintegrating 4 mg PO Q6H PRN (Reason: nausea and vomiting) Qty: 60 1RF Referrals Follow up/Referrals: Provider,Referral, MD [Primary Care Provider] - See instructions Activity Restrictions/Add. Instructions Additional Instructions/Restrictions: You were evaluated in the emergency department today. Please take Tylenol at home every 4-6 hours as needed for pain/fever. Orally hydrate is much as possible. Follow-up closely with your primary care provider for reassessment. Return to the emergency department for new or worsening symptoms. Clinical Impressions Clinical Impression: URI (upper respiratory infection) Stand Alone Forms Stand Alone Forms: Work/School Release Instructions Patient Instructions: DI for Viral Upper Respiratory Infection -- Adult Print Language Print Language: Japanese Discharge ED Provider: Shona Quintero General Adult HPI General Chief complaint: Upper Respiratory Infection Stated complaint: Congestion, Sore Throat Time Seen by Provider: 11/18/24 09:18 Mode of Arrival: Ambulatory Source of Information: Patient Description of Symptoms (Recalled from ER Triage Doc. by RN): patient states she has been congested with a cough since friday History of Present Illness HPI narrative: This patient is a 19-year-old female with a history of anxiety, depression, bipolar disorder presenting to the emergency department for evaluation with concern for cough, congestion, and sore throat that started 2 days ago. Patient is currently 13 weeks . She notes she called out of work today because she was not feeling well and they told her she needed a work excuse. She did not take medications prior to arrival. No other concerns or complaints noted at this time. Related Data Previous Rx's ?Medication ?Instructions ?Recorded olanzapine 5 mg tablet (Zyprexa) 5 mg PO HS #30 tabs 11/04/24 olanzapine 5 mg tablet (Zyprexa) 5 mg PO DAILY #30 tabs 11/05/24 ondansetron 4 mg disintegrating 4 mg PO Q6H PRN nausea and 11/17/24 tablet vomiting #60 tabs Allergies Allergy/AdvReac Type Severity Reaction Status Date / Time No Known Allergies Allergy Verified 11/04/24 11:46 [facility] Disclaimer: The information contained in this section may have been updated after the patient was seen, as this information can be updated by other users. Medical History Hx of bipolar disorder History of depression Hx of anxiety disorder Hx of borderline personality disorder Surgical History No significant past surgical history Social History Smoking Status: Never smoker alcohol intake: never current occupational status: unemployed Travel in the last 8 weeks?: None Have you lived/traveled outside US in past 30 days?: No Contact w/someone who lives/traveled outside US past 30 days?: No Exposure to someone with infectious disease in past 14 days?: No Do you have a fever (greater than 100.4 F or 38 C)?: No Have you tested positive for COVID-19?: No Exposed to someone with COVID-19 in past 14 days?: No Do you have a sore throat?: Yes Do you have a cough?: No Do you have any weakness?: No Do you have any diarrhea?: No Are you experiencing any unusual bleeding?: No Do you have any muscle aches/pain?: No Do you have any abdominal pain?: No Are you experiencing loss of taste or smell?: No ROS Obtained: Yes All systems reviewed & no additional complaints except as documented Physical Exam General General appearance: alert and in no apparent distress Head Head exam: atraumatic and normocephalic Eye Eye exam: Present normal appearance, PERRL and EOMI ENT ENT exam: Present normal exam, normal oropharynx, mucous membranes moist and normal external ear exam Neck Neck exam: Present normal inspection, full ROM and trachea midline; Absent ten derness Chest Chest inspection: Present normal inspection and symmetric chest wall rise; Absent tenderness Respiratory Respiratory exam: Present normal lung sounds bilaterally; Absent respiratory distress, wheezes, stridor or accessory muscle use Cardiovascular Cardiovascular exam: Present regular rate and normal rhythm Abdominal Exam Abdominal exam: Present soft; Absent distention, tenderness or guarding Extremities Exam Extremities exam: Present normal inspection, full ROM and normal capillary refill; Absent tenderness or edema Back Exam Back exam: Present normal inspection and full ROM; Absent tenderness Neurological Exam Neurological exam: Present alert, oriented X3, CN II-XII intact and normal gait; Absent motor sensory deficit Psychiatric Psychiatric exam: Present normal affect and normal mood Skin Skin exam: Present warm and dry Medical Decision Making Medical Records Medical records reviewed: Yes I reviewed the patient's medical records. Screening: Per USPSTF and CDC recommendations, given the prevalence of disease in our [facility], it is our hospital?s policy to screen for HIV and viral Hepatitis for all patients aged 18 and over and those with ongoing risk factors. Maximo Inquiry Pt receiving controlled substance: No Vital Signs: 11/18/24 09:13 11/18/24 09:46 Temperature 97.5 F L 98.1 F Temperature Source Oral Oral Pulse Rate 98 H Pulse Rate [Right Radial] 100 H Respiratory Rate 16 15 Blood Pressure 115/68 Blood Pressure [Right Arm] 112/68 Blood Pressure Mean [Right Arm] 82 Blood Pressure Source Automatic Cuff Blood Pressure Source [Right Arm] Automatic Cuff Blood Pressure Position Sitting Blood Pressure Position [Right Arm] Sitting 02 Sat by Pulse Oximetry 96 Oxygen Delivery Method Room Air Room Air Lab Data Lab results reviewed: Yes I reviewed the patient's lab results. Lab Results 11/18/24 09:13: SARS-CoV-2 (PCR) Not detected, Influenza A Untype (PCR) Not detected, Influenza Type B (PCR) Not detected, Group A Strep Rapid Negative Orders (Tests/Meds): ED MEDICATIONS Discontinued Medications Generic Name Dose Route Start Last Admin Trade Name Freq PRN Reason Stop Dose Admin Acetaminophen 1,000 mg 11/18/24 09:29 11/18/24 09:45 Acetaminophen 500mg Tab PO 11/18/24 09:30 1,000 mg ONCE ONE Administration ORDERS Category Date Time Status Rapid PCR Covid and Flu A/B Stat Lab 11/18/24 09:13 Completed Rapid Strep Scrn Group A [Strep Scrn Group A (Rapid)] Lab 11/18/24 09:13 Completed Stat Strep Screen Confirmation Stat Micro 11/18/24 09:13 Received Medical Decision Narrative: In summary, this patient is a 19-year-old female presenting to the Emergency Department for evaluation of sore throat, cough, and congestion. Differential diagnoses considered include but are not limited to viral syndrome, strep pharyngitis, allergic rhinitis, pneumonia. Ruling out the most morbid conditions drove assessment. It should be noted patient's history includes anxiety/depression which may not be at goal therapy. This complicates all aspects of care by increasing patient's risk for morbidity. I reviewed patient's past medical records and noted evaluation here 2 days ago for near syncope, which point workup was reassuring and the patient was discharged home. On exam, the patient is well-appearing. Cardiopulmonary exam is reassuring with no adventitious lung sounds noted. Vitals are normal on cardiac telemetry. She has some mild posterior oropharyngeal erythema but no other concerns noted on exam. I feels likely has a viral syndrome as cause of the constellation of symptoms. Workup included strep swab and COVID/flu swab. She was given oral Tylenol for symptomatic improvement. 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 Strep swab and COVID flu swabs are negative. I feel patient likely has another viral cause of her symptoms. I feel she is appropriate for discharge with instructions for supportive management and close follow-up. Strict return precautions given Critical Care Critical Care Time Critical Care Time: No
[2024-11-18 09:33] LABS: Strep Scrn Group A (Rapid) Negative (Negative)
[2024-11-18] MEDS: ACETAMINOPHEN 500MG TAB 1000 MG PO (09:45)
[2024-11-18 09:46] VITALS: BP 115/68; PULSE 98; RESP 15; TEMP 36.7; O2SAT 99
== END 2024-11-18 09:49 | disposition home or self-care (01) ==
PROVIDERS: Emergency Provider Emergency Medicine
DX: O26.891 Other specified pregnancy related conditions, first trimester (principal); R07.0 Pain in throat; J06.9 Acute upper respiratory infection, unspecified; Z3A.13 13 weeks gestation of pregnancy
CPT/HCPCS: 87430; 87636; 99283

== ENCOUNTER 2024-11-20 14:17 | Emergency (ER) | payer OTHER, SELFPAY ==
[2024-11-20 14:23] VITALS: BP 132/84; PULSE 108; RESP 15; TEMP 36.5; O2SAT 97; BMI 35.1
--- NOTE | 2024-11-20 14:26 | ED_ITS ---
<Statement entered by Cindy Lewis MD - 11/20/24 14:37> I was consulted by the CED, and we discussed the complexity of problems being addressed. I approved the treatment and management plan for this patient's care in the emergency department, thus performing a substantive portion of the medical decision making. Cindy Lewis MD Discharge Plan Disposition Chief Complaint: Upper Respiratory Infection Prescriptions Prescriptions: No Action olanzapine [Zyprexa] 5 mg tablet 5 mg PO HS Qty: 30 2RF olanzapine [Zyprexa] 5 mg tablet 5 mg PO DAILY Qty: 30 2RF ondansetron 4 mg tablet,disintegrating 4 mg PO Q6H PRN (Reason: nausea and vomiting) Qty: 60 1RF Referrals Follow up/Referrals: Provider,Referral, [Primary Care Provider] - See instructions Print Language Print Language: Azerbaijani Discharge ED Provider: Cindy Lewis General Adult HPI General Stated complaint: 13wks. coughing, Sore throat, sneezing, congestion Time Seen by Provider: 11/20/24 14:21 History of Present Illness HPI narrative: This is a 19-year-old female who presents to the ED today for complaint of coughing, sore throat sneezing and congestion. She is concerned about her baby. She says she just coughs so much that she wants to make sure that the baby is fine. She and I discussed interventions that she can do while . She and I discussed swabbing again for strep, flu, COVID but she does not want to do that. She says this was done the other day when she was here. She just wanted to see if there is anything else that could be done. Related Data Previous Rx's ?Medication ?Instructions ?Recorded olanzapine 5 mg tablet (Zyprexa) 5 mg PO HS #30 tabs 11/04/24 olanzapine 5 mg tablet (Zyprexa) 5 mg PO DAILY #30 tabs 11/05/24 ondansetron 4 mg disintegrating 4 mg PO Q6H PRN nausea and 11/17/24 tablet vomiting #60 tabs Allergies Allergy/AdvReac Type Severity Reaction Status Date / Time No Known Allergies Allergy Verified 11/04/24 11:46 PFSH [facility] Disclaimer: The information contained in this section may have been updated after the patient was seen, as this information can be updated by other users. Medical History Hx of bipolar disorder History of depression Hx of anxiety disorder Hx of borderline personality disorder Surgical History No significant past surgical history Social History Smoking Status: Never smoker alcohol intake: never current occupational status: unemployed Travel in the last 8 weeks?: None ROS Obtained: Yes Systems reviewed as appropriate & no additional complaints except as documented Constitutional Constitutional: Reports as per HPI Physical Exam General General appearance: alert and in no apparent distress Head Head exam: atraumatic and normocephalic Eye Eye exam: Present normal appearance, PERRL and EOMI ENT ENT exam: Present normal exam, normal oropharynx and mucous membranes moist Neck Neck exam: Present normal inspection, full ROM and trachea midline Respiratory Respiratory exam: Present normal lung sounds bilaterally Cardiovascular Cardiovascular exam: Present regular rate, normal rhythm, normal heart sounds, +S1 and +S2 Abdominal Exam Abdominal exam: Present soft and normal bowel sounds Extremities Exam Extremities exam: Present normal inspection, full ROM and normal capillary refill Neurological Exam Neurological exam: Present alert, oriented X3 and normal gait Skin Skin exam: Present warm, dry and intact Medical Decision Making Medical Records Screening: Per USPSTF and CDC recommendations, given the prevalence of disease in our region, it is our hospital?s policy to screen for HIV and viral Hepatitis for all patients aged 18 and over and those with ongoing risk factors. Maximo Inquiry Pt receiving controlled substance: No Maximo was queried for this patient: No Medical Decision Narrative: Insert review patient is a 19-year-old female presenting to the emergency department for evaluation of cough, congestion, sore throat. She is 13 weeks . Patient is hemodynamically stable and nontoxic-appearing upon arrival, afebrile. Differential diagnosis includes viral illness, allergies among others. No workup will be conducted as patient and I discussed and she does not want any swabs or testing today. I discussed with patient that she could increase fluids, take Tylenol and Benadryl safely with the . Return to PCP for further problems or concerns or may return to the ED for any worsening symptoms. Safe for discharge home. Critical Care Critical Care Time Critical Care Time: No
[2024-11-20 14:30] VITALS: BP 119/77; PULSE 105; O2SAT 97
[2024-11-20 15:00] VITALS: BP 116/77; PULSE 102; O2SAT 99
[2024-11-20 15:13] VITALS: BP 120/85; PULSE 95; RESP 15; TEMP 37.1; O2SAT 99
== END 2024-11-20 15:15 | disposition home or self-care (01) ==
PROVIDERS: Emergency Provider Student in an Organized Health Care Education/Training Program
DX: O26.891 Other specified pregnancy related conditions, first trimester (principal); R07.0 Pain in throat; R09.81 Nasal congestion; J06.9 Acute upper respiratory infection, unspecified; Z3A.13 13 weeks gestation of pregnancy
CPT/HCPCS: 99282

== ENCOUNTER 2024-12-14 21:44 | Emergency (ER) | payer OTHER, SELFPAY ==
[2024-12-14 21:51] VITALS: BP 135/81; PULSE 81; RESP 16; TEMP 36.6; O2SAT 98; BMI 35.1
--- NOTE | 2024-12-14 22:03 | ED_ITS ---
Discharge Plan Disposition Patient Disposition: Home, Self-Care Prescriptions Prescriptions: No Action olanzapine [Zyprexa] 5 mg tablet 5 mg PO DAILY Qty: 30 2RF ondansetron 4 mg tablet,disintegrating 4 mg PO Q6H PRN (Reason: nausea and vomiting) Qty: 60 1RF Referrals Follow up/Referrals: Provider,Referral, [Primary Care Provider, Medical] - See instructions Activity Restrictions/Add. Instructions Additional Instructions/Restrictions: You have a single living intrauterine with normal heart rate consistent with your dates. The fact that you have no significant abdominal pain right now and that has been coming and going on both sides most likely is consistent with round ligament pain or stretching pain as your grandmother ca lled it. 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 Clinical Impressions Clinical Impression: Second trimester , Pain of round ligament Instructions Patient Instructions: DI for Acute Abdominal Pain Print Language Print Language: South African Discharge ED Provider: Radha Harrison General Adult HPI General Chief complaint: Abdominal Pain Stated complaint: 17 weeks abdominal pain no bleeding Time Seen by Provider: 12/14/24 21:54 Mode of Arrival: Ambulatory Source of Information: Patient Description of Symptoms (Recalled from ER Triage Doc. by RN): Pt presents to ED for abd pain that started approx 1.5 hours ago. Pt denies N/V/D. Pt is A&O*4 and partner is bedside. Pt states the pain is intermittent. History of Present Illness HPI narrative: Patient is a 19-year-old female presents today concerned about her . She is 17 weeks by dates and for trimester ultrasound presents today with lower abdominal discomfort. She states has been coming and going on both sides currently has no symptoms at all. No urinary symptoms burning frequency urgency vaginal bleeding vaginal discharge loss of fluid contractions etc. She states she is just worried about her baby and wanted to make sure that it was okay. Related Data Previous Rx's ?Medication ?Instructions ?Recorded olanzapine 5 mg tablet (Zyprexa) 5 mg PO DAILY #30 tab s 11/05/24 ondansetron 4 mg disintegrating 4 mg PO Q6H PRN nausea and 11/17/24 tablet vomiting #60 tabs Allergies Allergy/AdvReac Type Severity Reaction Status Date / Time No Known Allergies Allergy Verified 11/24/24 13:10 [facility] Disclaimer: The information contained in this section may have been updated after the patient was seen, as this information can be updated by other users. Medical History Hx of bipolar disorder History of depression Hx of anxiety disorder Hx of borderline personality disorder Surgical History No significant past surgical history Social History Smoking Status: Unknown if ever smoked alcohol intake: never current occupational status: unemployed Travel in the last 8 weeks?: None Have you lived/traveled outside US in past 30 days?: No Contact w/someone who lives/traveled outside US past 30 days?: No Exposure to someone with infectious disease in past 14 days?: No Do you have a fever (greater than 100.4 F or 38 C)?: No Have you tested positive for COVID-19?: No Exposed to someone with COVID-19 in past 14 days?: No Do you have a sore throat?: No Do you have a cough?: No Do you have any weakness?: No Do you have any diarrhea?: No Are you experiencing any unusual bleeding?: No Do you have any muscle aches/pain?: No Do you have any abdominal pain?: No Are you experiencing loss of taste or smell?: No ROS Obtained: Yes All systems reviewed & no additional complaints except as documented Physical Exam General General appearance: alert and in no apparent distress Respiratory Respiratory exam: Present normal lung sounds bilaterally Cardiovascular Cardiovascular exam: Present regular rate Abdominal Exam Abdominal exam: Present soft; Absent distention or tenderness Neurological Exam Neurological exam: Present alert and oriented X3 Medical Decision Making Medical Records Screening: Per USPSTF and CDC recommendations, given the prevalence of disease in our region, it is our hospital?s policy to screen for HIV and viral Hepatitis for all patients aged 18 and over and those with ongoing risk factors. Maximo Inquiry Pt receiving controlled substance: No Vital Signs: 12/14/24 21:51 Temperature 97.8 F Temperature Source Oral Pulse Rate [Left] 81 Respiratory Rate 16 Blood Pressure [Right Arm] 135/81 Blood Pressure Mean [Right Arm] 99 02 Sat by Pulse Oximetry 98 Oxygen Delivery Method Room Air Orders (Tests/Meds): ORDERS Category Date Time Status POCUS Point of Care (ER Only) Stat Exams 12/14/24 21:54 Ordered Medical Decision Narrative: 19-year-old female with a completely benign abdominal exam currently and is asymptomatic at the moment has had intermittent and bilateral discomfort most likely round ligament pain. Nonetheless she has no need for emergency evaluation or workup I did do a limited bedside ultrasound which confirms single living IUP and very much reassured the patient. She is stable for outpatient management with her [employer]NAGER OF [employer]ABILITY doctor return precautions emphasized. Procedures Miscellaneous Procedure Procedure Performed: Limited OB ultrasound Indication: Abdominal pain in setting of Identified structures: [-Uterus -Left adnexa -Right adnexa -Pouch of Merlin] Findings: Uterus: Definitive IUP consistent with dates FHR: 153 Right adnexa: No free fluid Left adnexa: No free fluid [place] sac: Free fluid absent Impression: Single living IUP consistent with dates with normal heart rate Images were saved to permanent archive The study was technically adequate CPT Transabdominal: 04635-77 This study was performed by me, and I personally interpreted all images/videos. Based on my clinical judgement, these images were adequate and did not necessitate further imaging. Critical Care Critical Care Time Critical Care Time: No
[2024-12-14 22:08] VITALS: BP 135/81; PULSE 95; RESP 16; TEMP 36.6; O2SAT 98
== END 2024-12-14 22:10 | disposition home or self-care (01) ==
PROVIDERS: Emergency Provider Student in an Organized Health Care Education/Training Program
DX: O26.892 Other specified pregnancy related conditions, second trimester (principal); R10.9 Unspecified abdominal pain; N94.89 Other specified conditions associated with female genital organs and menstrual cycle; Z3A.17 17 weeks gestation of pregnancy
CPT/HCPCS: 99283

== ENCOUNTER 2024-12-17 11:08 | Emergency (ER) | payer OTHER, SELFPAY ==
--- OUTSIDE RECORDS SUMMARY | 2024-09-30 15:06 | XMS_ITS ---
Author Organization [facility] Address [address] [facility] [address] [place] [address] Care Team Providers Care Acupuncture Physician Name Role Phone [place]omondShannan anderson Unavailable [phone] REASON FOR VISIT UTI Medications Medication SIG (Take, Route, Fr equency, Duration) Notes Start Date End Date Status Macrobid 100 MG 1 capsule with food Orally every 12 hrs for 7 days 09/30/2024 Active Social History Sex Assigned At : Social History Observation Description Sex Assigned At Female Encounters Encounter Location Date Provider Diagnosis [address] [place] [address] 09/30/2024 Shannan Ocasio Plan Of Treatment Medication Medication Name Sig Start Date Stop Date Notes Macrobid 100 MG 1 capsule with food Orally every 12 hrs for 7 days 09/30/2024 Progress Notes * Kaitlynn WILLS EDOB:2005 (19 yo F)Acc No.[id number]:09/30/2024 Patient: Kaitlynn GONZALEZ :2005 A ge:19 Y S ex:Female Address:[address] [place] [address], [address], [place], [address] * Refills Start Macrobid Capsule, 100 MG, Orally, 14 Capsule, 1 capsule with food, every 12 hrs, 7 days, Refills=0 * true * Date: Generated for Genesis ng/Faxing/eTransmitting on: 0 12/17/2024 11:21 AM EDT
--- OUTSIDE RECORDS SUMMARY | 2024-11-03 04:40 | XMS_ITS ---
Author Organization [facility] Address [address] [address] Care Team Providers Care Pharmacist'S Aide Name Role Phone Shannan Ocasio Unavailable [phone] REASON FOR VISIT US OB Dating Social History Sex Assigned At : Social History Observation Description Sex Assigned At Female Encounters Encounter Location Date Provider Diagnosis Ultrasound [facility] [address] [place] [address] 11/03/2024 Shannan Ocasio Plan Of Treatment No Information Progress Notes * Kaitlynn WILLS EDOB:2005 (19 yo F)Acc No.[id number]:11/03/2024 Patient: Kaitlynn GONZALEZ Provider: Harsh Ocasio MD :2005 A ge:19 Y S ex:Female Date:11/03/2024 Address:[address] [place] [address], [address], [id number] Subjective: * Chief Complaints: * 1 . US OB Dating. * Medical History: Objective: * Vitals: Assessment: Plan: * Treatment: * Billing Information: * Visit Code: * Procedure Codes: * Electronic signature of No Ocasio MD on 12/17/2024 at 11:21 AM EDT Sign off status: Pending Visit Status: C ANC (Cancelled) * Provider: Harsh Ocasio MD Date: 0 11/03/2024 Generated for Genesis hammond/Ivet/Nikoitting on: 0 12/17/2024 11:21 AM EDT
--- OUTSIDE RECORDS SUMMARY | 2024-11-03 05:00 | XMS_ITS ---
Author Organization [facility] Address [address] [facility] [address] [place] [address] Care Team Providers Care Landing Worker Name Role Phone Shannan Ocasio Unavailable [phone] REASON FOR VISIT US OB Dating, ACOG, labs Social History Sex Assigned At : Social History Observation Description Sex Assigned At Female Encounters Encounter Location Date Provider Diagnosis [address] [place] [address] 11/03/2024 Shannan Ocasio Plan Of Treatment No Information Progress Notes * Kaitlynn WILLS EDOB:2005 (19 yo F)Acc No.[id number]:11/03/2024 Progress Note Patient: Kaitlynn GONZALEZ Provider: Harsh Ocasio MD :2005 A ge:19 Y S ex:Female Date:11/03/2024 Address:[address] [place] [address], [address], [place], [id number] Subjective: * Chief Complaints: * 1 . US OB Dating, ACOG, labs. * Medical History: Objective: * Vitals: Assessment: Plan: * Treatment: * Billing Information: * Visit Code: * Procedure Codes: * Electronic signature of No Ocasio MD on 12/17/2024 at 11:21 AM EDT Sign off status: Pending Visit Status: C ANC (Cancelled) * Provider: Harsh Ocasio MD Date: 0 11/03/2024 Generated for Genesis hammond/Ivet/Sy on: 0 12/17/2024 11:21 AM EDT
[2024-12-17 11:17] VITALS: BP 127/80; PULSE 104; RESP 14; TEMP 36.8; O2SAT 98; BMI 34.9
[2024-12-17 11:17] LABS: Microscopic, Urine URINE MICROSCOPIC (MICROSCOPIC)
--- OUTSIDE RECORDS SUMMARY | 2024-12-17 11:21 | XMS_ITS | Patient Health Record ---
Author Organization [facility] Address [address] [place] [address] Care Team Providers Care Train Dispatcher Name Role Phone Shannan Ocasio Unavailable [phone] YokoPamela Unavailable [phone] Allergies No Known Allergies Results Component Value Reference Range Notes Chlamydia/Gonorrhea, CLINTON (Ap sahron/PAP) Reviewed date:07/21/2024 06:23:09 PM Interpretation:Normal Performing Lab:Natasha CROSS [facility] - [place] CLIA ID [id number], [address], [address], [place] [address], Director - Feroz Michael MD Notes/Report: Chlamydia Trachomatis Negative Negative Neisseria Gonorrhoeae Negative Negative Urine Reviewed date:07/20/2024 12:27:40 PM Interpretation:Negative Performing Lab: Notes/Report: Chlamydia/Gonorrhea, CLINTON (Ap sharon/PAP) Reviewed date:09/29/2024 08:27:44 AM Interpretation:Normal Performing Lab: Notes/Report: [facility] Testing performed at: [=G] [address], [address], , Scalping Machine Operator: Maria Teresa Villanueva MD Chlamydia trachomatis, CLINTON Negative Negative Neisseria gonorrhoeae, CLINTON Negative Negative Drug Profile Screen, Urine Reviewed date:10/01/2024 05:14:50 PM Interpretation:Normal Performing Lab: Notes/Report: [facility] performed at: [UI] [facility], [address] [facility] [address], [place], [address], , Scalping Machine Operator: Marbella Corrales, PhD Testing performed at: [CB] [facility], [address], [place], [address], , Scalping Machine Operator: Vignesh Manuel, PhD QNS: UNABLE TO COMPLETE TEST Amphetamines Screen, Urine Negative Gksesy=0663 ng/mL Barbiturates Screen, Urine Negative Owfxtv=488 ng/mL Benzodiazepines Screen, Urine Negative Teuigs=771 ng/mL Cannabinoid Screen, Urine See Final Results Cutoff=20 ng/mL Cannabinoid Test Not Performed. Test not performed. Insufficient specimen to perform or complete analysis. Cocaine (Metab.) Screen, Urine Negative Mwrdag=657 ng/mL Opiate Screen, Urine Negative Purqmm=269 ng/mL Opi ate test includes Codeine, Morphine, Hydromorphone, Hydrocodone. Oxycodone/Oxymorphone, Urine Negative Qfjqut=344 ng/mL Test includes Oxycod one and Oxymorphone Phencyclidine Screen, Urine Negative Cutoff=25 ng/mL Methadone Screen, Urine Negative Oolagm=832 ng/mL Propoxyphene Screen, Urine Negative Yzprxh=058 ng/mL Meperidine Screen, Urine Negative Oapbww=885 ng/mL This test was developed and its performance characteristics determined by [employer]. It has not been cleared or approved by the Food and Drug Administration. Tramadol Screen, Urine Negative Vshqsm=054 ng/mL Fentanyl, Urine Negative Idkmbr=6134 pg/mL Test includes Fentanyl and Norfentanyl This test was developed and its performance characteristics determined by [employer]. It has not been cleared or approved by the Food and Drug Administration. Buprenorphine, Urine Negative Cutoff=10 ng/mL Creatinine, Urine 163.5 20.0-300.0 mg/dL Specific [place] 1.019 pH, Urine 7.4 4.5-8.9 Please Note: Comment Drug test results should be interpreted in the context of clinical information. Patient metabolic variables, specific drug chemistry, and specimen characteristics can affect test outcome. Technical consultation is available if a test result is inconsistent with an expected outcome. Email: [email or web address] Drug brands, if listed herein, are trademarks of their respective owners. Urine Culture and Sensitivit y Reviewed date:09/30/2024 07:08:46 PM Interpretation:Abnormal Performing Lab: Notes/Report: [email or web address] Testing performed at: [CB] [email or web address], [address], , Scalping Machine Operator: Vignesh Manuel, PhD Urine Culture, Routine Final report Result 1 Escherichia coli Cefazolin with an NITHYA <=16 predicts susceptibility to the oral agents cefaclor, cefdinir, cefpodoxime, cefprozil, cefuroxime, cephalexin, and loracarbef when used for therapy of uncomplicated urinary tract infections due to E. coli, Klebsiella pneumoniae, and Proteus mirabilis. Greater than 100,000 colony forming units per mL Antimicrobial Susceptibility Comment S = Susceptible; I = Intermediate; R = Resistant P = Positive; N = Negative MICS are expressed in micrograms per mL Antibiotic RSLT#1 RSLT#2 RSLT#3 RSLT#4 Amoxicillin/Clavulanic Acid S Ampicillin S Cefazolin S Cefepime S Cefoxitin S Cefpodoxime S Ceftriaxone S Ciprofloxacin S Ertapenem S Gentamicin S Levofloxacin S Meropenem S Nitrofurantoin S Piperacillin/Tazobactam S Tetracycline S Tobramycin S Trimethoprim/Sulfa S Urine Reviewed date:09/27/2024 04:50:48 PM Interpretation:Positive Performing Lab: Notes/Report: Specimen Status Report Reviewed date:10/01/2024 05:14:50 PM Interpretation: Performing Lab: Notes/Report: [facility] Testing performed at: [UI] [facility], [address] [facility] [facility] [address], [place], [address], , Scalping Machine Operator: Marbella Corrales, PhD Testing performed at: [CB] [email or web address], [address] [place] [address], [address], , Scalping Machine Operator: Vignesh Manuel, PhD QNS: UNABLE TO COMPLETE TEST Specimen Status Report Test Not Performed. Test not performed. Insufficient specimen to perform or complete analysis. TEST: [id number] Carboxy THC Conf, MS, UR Panel: [id number] Reason For Referral No Information Medications Medication SIG (Take, Route, Fr equency, Duration) Notes Start Date End Date Status Macrobid 100 MG 1 capsule with food Orally every 12 hrs for 7 days 09/30/2024 Active Paliperidone ER 3 MG 1 tablet in the mor linnea Orally Once a day for 30 day(s) 07/20/2024 Active Social History Tobacco Use: Social History Observation Description Date Details (start date - stop date) Never Smoker NA - NA Sex Assigned At : Social History Observation Description Sex Assigned At Female AUDIT-C (Standard) Question Answer Notes Did you have a drink containing alcohol in the p ast year? No Tobacco Control (Standard) Question Answer Notes Tobacco use: Nonsmoker Problems Problem Type SNOMED Code ICD Code Onset Dates Problem Status W/U Status Risk Notes Problem [id number] Personality disorder (F60.9) Active confirmed Vital Signs Blood pressure diastolic 74 mm Hg 09/27/2024 Height 5FT 1IN in 09/27/2024 Blood pressure systolic 112 mm Hg 09/27/2024 Weight 184 lbs 09/27/2024 BMI 34.76 kg/m2 09/27/2024 Encounters Encounter Location Date Provider Diagnosis [address] Int[address] [facility] [address] [place] [address] 08/20/2024 Shannan Ocasio [address] [place] [address] 09/30/2024 Shannan Ocasio [facility] [address] [facility] [address] [place] [address] 07/19/2024 Pamela Babcock [facility] [address] [facility] [address] [place] [address] 08/19/2024 Pamela Babcock [facility] [address] [place] [address] [address] [place] [address] 09/27/2024 Shannan Ocasio Encounter for test, result unknown Z32.00 and Encounter for other specified screening Z36.89 [place] [address] [facility] [address] [place] [address] 07/20/2024 Pamela Munsonvall Watch Assembler exam without abnormal findings Z01.419 ; Encounter for test, result unknown Z32.00 ; Personality disorder F60.9 and Routine screening for STI (sexually transmitted infection) Z11.3 Assessments Encounter Date Diagnosis (ICD Code) Assessment Notes Treatment Notes Treatment Clinical Notes Section Notes 07/20/2024 Encounter for test, result unknown (ICD-10 - Z32.00) 07/20/2024 Watch Assembler exam without abnormal findings (ICD-10 - Z01.419) 09/27/2024 Encounter for test, result unknown (ICD-10 - Z32.00) 09/27/2024 Encounter for other specified screening (ICD-10 - Z36.89) 07/20/2024 Personality disorder (ICD-10 - F60.9) 07/20/2024 Routine screening for STI (sexually transmitted infection) (ICD-10 - Z11.3) Plan Of Treatment Future Test Test Name Order Date Blood Type ABO, RH and Antibody Screen 0 09/27/2024 CBC 09/27/2024 Hepatitis B Surface Antigen 09/27/2024 Hepatitis C Virus AB 09/27/2024 HIV-1/2 Antigen and Antibodies, 4th Gene ration 09/27/2024 Rubella Antibodies, IgG 09/27/2024 Syphilis T Pallidium Screening Routt 0 09/27/2024 *US OB Complete greater than 14 Weeks Tr ansabdominal 09/27/2024 Medical (General) History Medical History History ICD Code Anxiety DEPRESSION UTI-needs [facility] @ [facility]
--- OUTSIDE RECORDS SUMMARY | 2024-12-17 11:21 | XMS_ITS | Referral Summary ---
Author Organization [facility] Address [address] [place] [address] Care Team Providers Care Contact Acid Plant Operator Name Role Phone Ailyn Rivera MD Primary Care Provid er Encounters Date Type Department Care Team Description 09/28/2024 8:15 AM EDT Office Visit [facility] [address] [place] [address], [address] [place] [address] Ailyn Rivera MD [facility] physical exam (Primary Dx); Obesity, Class II, BMI 35-39.9; 10 weeks gestation of ; Borderline personality disorder (HCC) from Last 3 Months Allergies No known active allergies Medications Paliperidone Palmitate ER (INVEGA HAFYERA) 1560 MG/5ML BROOK Inject into a large muscle. Active Active Problems Problem Noted Date Diagnosed Date Borderline personality disorder 09/28/2024 Estimated Date of Delivery Comme nts Yes 04/25/2025 Immunizations Immunization Administration Dates Next Due COVID-19 mRNA Vaccine (Pfize r EUA 12+) Purple Cap 11/08/2020,10/14/2020 Diphtheria, Tetanus, and Per tussis (DTaP) 11/02/2008,10/29/2007,04/08/2006,10/05,2004 Hepatitis B Vaccine, Unspecified 04/08/2006,09/12,2004 Hib PRP-T conjugate, IM (Act HIB, Hiberix) 04/08/2006,2004,2004 Human Papillomavirus 9-Hannah t (Gardasil 9) 02/09/2021,09/04/2020,06/05/2020 Influenza Vaccine, Recombina nt Trivalent PF (Flublok) 07/06/2024 Influenza Virus Vaccine Quad rivalent (Flucelvax) Injection 06/26/2021 Measles/Mumps/Rubella, SQ 11/02/2006,04/08/2006 Meningococcal Polysaccharide ACWY-135 DT-Conj (MENACTRA) 03/20/2016 Pneumococcal Conjugate (PCV1 3) Prevnar 13 10/29/2007,04/08/2006,2004,08/07 Poliovirus Inactivated, IM/SQ 11/02/2008 ,04/08/2006,2004,08/07 Tdap (Tetanus, Diphtheria & Pertussis) 0 03/20/2016,11/02/2008,10/29/2007,04/08,2004,2004 Varicella, Live Attenuated (Varivax) 11/02/2008, 04/08/2006 Social History Tobacco Use Types Packs/Day Years Used Date Smoking Tobacco: Never Smokeless Tobacco: Never Alcohol Use Standard Drinks/Week Comments Not Currently 0 (1 standard drink = 0.6 oz pur e alcohol) Estimated Date of Delivery Comme nts Yes 04/25/2025 Sex and Gender Information Value Date Recorded Sex Assigned at Not on file Legal Sex Female 11:16 AM EDT Gender Identity Not on file Sexual Orientation Not on file Last Filed Vital Signs Vital Sign Reading Time Taken Comments Blood Pressure 100/66 09/28/2024 8:10 AM EDT Pulse 107 09/28/2024 8:10 AM EDT Temperature 36.3 C (97.3 F) 09/28/2024 8:10 AM EDT Respiratory Rate 16 07/13/2024 11:49 AM EST Oxygen Saturation 98% 09/28/2024 8:10 AM EDT Inhaled Oxygen Concentration - - Weight 84 kg (185 lb 4 oz) 09/28/2024 8:10 AM ED T Height 154.9 cm (5' 1 ) 09/28/2024 8:10 AM EDT Body Mass Index 35 09/28/2024 8:10 AM EDT Plan of Treatment Not on file Care Teams Contact Acid Plant Operator Relationship Specialty Start Date End Date Ailyn Rivera MD PCP - General Internal Medicine 07/06/24
--- OUTSIDE RECORDS SUMMARY | 2024-12-17 11:21 | XMS_ITS | Clinical Summary ---
Author Organization [facility] Address [address] [place] [address] Care Team Providers Care Claim Review Medical Director Name Role Phone Ailyn Rivera MD Primary Care Provid er Allergies No known active allergies Medications Paliperidone Palmitate ER (INVEGA HAFYERA) 1560 MG/5ML BROOK Inject into a large muscle. Active Active Problems Problem Noted Date Diagnosed Date Borderline personality disorder 09/28/2024 Estimated Date of Delivery Comme nts Yes 04/25/2025 Encounters Date Type Department Care Team Description 09/28/2024 8:15 AM EDT Office Visit [address], [address] [place] [address] iAlyn Rivera MD [facility] physical exam (Primary Dx); Obesity, Class II, BMI 35-39.9; 10 weeks gestation of ; Borderline personality disorder (HCC) from Last 3 Months Immunizations Immunization Administration Dates Next Due COVID-19 [...] 03/20/2016,11/02/2008,10/29/2007,04/08,2004,2004 Varicella, Live Attenuated (Varivax) 11/02/2008, 04/08/2006 Family History Medical History Relation Name Comments Aortic aneurysm Father Relation Name Status Comments Father Half-Sister Alive Maternal Grandfather Alive Maternal Grandmother Alive Mother Alive Paternal Grandfather Paternal Grandmother Social History Tobacco Use Types Packs/Day Years [...] 09/28/2024 8:10 AM EDT Plan of Treatment Health Maintenance Due Date Last Done Comments Meningococcal B (MenB) (1 of 2 - Standard) 2020 COVID-19 Vaccine (3 - season) 2024 11/08/2020, 10/14/2020 RSV Vaccine (60+ or ) (1 - Risk 1-dose series) 03/14/2025 DTap,Tdap,and Td (7 - Td or Tdap) 03/20/2026 03/20/2016, 11/02/2008, 11/02/2008, Additional history exists Pneumococcal 0-49 Completed 10/29/2007, , 2004, Additional history exists VARIVAX Completed 11/02/2008, 04/08/2006 Meningococcal conjugate valent 4 (MCV4) Aged Out 03/20/2016 No longer eligible based on patient's age to complete this topic HPV Completed 02/09/2021, 08/15, 06/05/2020 Influenza Vaccine Completed 07/06/2024, 06/26/2021 RSV Immunization (<20 months) Aged Out No longer eligible based on patient's age to complete this topic Care Teams Claim Review Medical Director Relationship Specialty Start Date End Date Ailyn Rivera MD PCP - General Internal Medicine 07/06/24
[2024-12-17 11:29] VITALS: BP 117/66; PULSE 104; O2SAT 99
[2024-12-17 11:29] LABS: Appearance,Urine CLOUDY (Clear); Bilirubin,Urine Negative (Negative); Blood, Urine Negative (Negative); Color,Urine YELLOW (Yellow); Glucose,Urine (UA) Negative (Negative); Ketones,Urine Negative (Negative); Leukocyte Esterase,Urine 1+ (Negative); Nitrate,Urine Negative (Negative); Protein,Urine Negative (Negative); Specific Gravity, Urine 1.015 (1.005-1.030); Urobilinogen,Urine 0.2 EU/dl (0.2)
[2024-12-17 11:47] LABS: Bacteria,Urine 3+ /lpf
--- NOTE | 2024-12-17 11:59 | ED_ITS ---
Discharge Plan Disposition Patient Disposition: Home, Self-Care Condition: Good Prescriptions Prescriptions: New cetirizine [Zyrtec] 10 mg tablet 10 mg PO DAILY Qty: 30 0RF fluticasone propionate [Flonase Allergy Relief] 50 mcg/actuation spray,suspension 1 spray intranasal DAILY Qty: 16 0RF Rx Instructions: administer into each nostril cefdinir 300 mg capsule 300 mg PO BID 5 Days Qty: 10 0RF No Action olanzapine [Zyprexa] 5 mg tablet 5 mg PO DAILY Qty: 30 2RF ondansetron 4 mg tablet,disintegrating 4 mg PO Q6H PRN (Reason: nausea and vomiting) Qty: 60 1RF Referrals Follow up/Referrals: Jessica Lang DO [Staff Physician, HEAD RIGGER] - See instructions Provider,Referral, MD [Primary Care Provider, Medical] - See instructions Activity Restrictions/Add. Instructions Additional Instructions/Restrictions: You were evaluated in the emergency department today. For your cough, I am prescribing you Flonase and Zyrtec to help dry up any postnasal drip/secretions. You do have bacteria in your urine, so we are treating you with cefdinir. Please seed cone picker the prescription for this and take as prescribed. Follow-up very closely with OB as well as with your primary care provider. Return to the emergency department for new or worsening symptoms. Clinical Impressions Clinical Impression: Asymptomatic bacteriuria during , Abdominal cramping, Cough Stand Alone Forms Stand Alone Forms: Work/School Release Instructions Patient Instructions: DI for Cough -- Adult, DI for Abdominal Pain -- Early Print Language Print Language: Vietnamese Discharge ED Provider: Shona Quintero General Adult HPI General Chief complaint: PAIN Stated complaint: 17 weeks -abd pain Time Seen by Provider: 12/17/24 11:34 Mode of Arrival: Ambulatory Source of Information: Patient Description of Symptoms (Recalled from ER Triage Doc. by RN): pt states around 0100 she was laying in bed and her approximately 40lb dog jumped in bed on her abd. pt c/o soreness in her abd that is 3/10. pt reports she is a pt of and is 17wks . pt denies vaginal bleeding or other symptoms. pt denies any complications with her . History of Present Illness HPI narrative: This patient is a 19-year-old G1, P1 at estimated 17 weeks gestation presenting to the emergency department for evaluation with concern for abdominal pain after her dog jumped on her abdomen on her bed around 1:00 this morning. She states the dog is 40 pounds. She states that she has some lower abdominal cramping and soreness right where the dog jumped on her that is 3 out of 10. No abnormal vaginal bleeding or leakage of fluid. She also does note that she has had some cough and congestion for about a month and a half, she is not sure if his allergies to what it may be. She states she is mostly coughing up white sputum. No other concerns or complaints noted at this time. Related Data Previous Rx's ?Medication ?Instructions ?Recorded olanzapine 5 mg tablet (Zyprexa) 5 mg PO DAILY #30 tab s 11/05/24 ondansetron 4 mg disintegrating 4 mg PO Q6H PRN nausea and 11/17/24 tablet vomiting #60 tabs cefdinir 300 mg capsule 300 mg PO BID 5 days #10 cap s 12/17/24 cetirizine 10 mg tablet (Zyrtec) 10 mg PO DAILY #30 ta bs 12/17/24 fluticasone propionate 50 1 spray intranasal DAILY #16 grams 12/17/24 mcg/actuation nasal spray,suspension (Flonase Allergy Relief) Allergies Allergy/AdvReac Type Severity Reaction Status Date / Time No Known Allergies Allergy Verified 12/17/24 11:39 [facility] Disclaimer: The information contained in this section may have been updated after the patient was seen, as this information can be updated by other users. Medical History Hx of bipolar disorder History of depression Hx of anxiety disorder Hx of borderline personality disorder Surgical History No significant past surgical history Social History Smoking Status: Never smoker alcohol intake: never current occupational status: unemployed Travel in the last 8 weeks?: None Have you lived/traveled outside US in past 30 days?: No Contact w/someone who lives/traveled outside US past 30 days?: No Exposure to someone with infectious disease in past 14 days?: No Do you have a fever (greater than 100.4 F or 38 C)?: No Have you tested positive for COVID-19?: No Exposed to someone with COVID-19 in past 14 days?: No Do you have a sore throat?: No Do you have a cough?: No Do you have any weakness?: No Do you have any diarrhea?: No Are you experiencing any unusual bleeding?: No Do you have any muscle aches/pain?: No Do you have any abdominal pain?: Yes Are you experiencing loss of taste or smell?: No ROS Obtained: Yes All systems reviewed & no additional complaints except as documented Physical Exam General General appearance: alert and in no apparent distress Head Head exam: atraumatic and normocephalic Eye Eye exam: Present normal appearance, PERRL and EOMI ENT ENT exam: Present normal exam, normal oropharynx, mucous membranes moist and normal external ear exam Neck Neck exam: Present normal inspection, full ROM and trachea midline; Absent tenderness Chest Chest inspection: Present normal inspection and symmetric chest wall rise; Abs ent tenderness Respiratory Respiratory exam: Present normal lung sounds bilaterally; Absent respiratory distress, wheezes, stridor or accessory muscle use Cardiovascular Cardiovascular exam: Present regular rate and normal rhythm Abdominal Exam Abdominal exam: Present soft; Absent distention, tenderness or guarding Extremities Exam Extremities exam: Present normal inspection, full ROM and normal capillary refill; Absent tenderness or edema Back Exam Back exam: Present normal inspection and full ROM; Absent tenderness Neurological Exam Neurological exam: Present alert, oriented X3, CN II-XII intact and normal gait; Absent motor sensory deficit Psychiatric Psychiatric exam: Present normal affect and normal mood Skin Skin exam: Present warm and dry Medical Decision Making Medical Records Medical records reviewed: Yes I reviewed the patient's medical records. Screening: Per USPSTF and CDC recommendations, given the prevalence of disease in our region, it is our hospital?s policy to screen for HIV and viral Hepatitis for all patients aged 18 and over and those with ongoing risk factors. Maximo Inquiry Pt receiving controlled substance: No Vital Signs: 12/17/24 11:17 Temperature 98.2 F Temperature Source Oral Pulse Rate [Left] 104 H Respiratory Rate 14 Blood Pressure [Right Arm] 127/80 Blood Pressure Mean [Right Arm] 95 Blood Pressure Source [Right Arm] Automatic Cuff Blood Pressure Position [Right Arm] Sitting 02 Sat by Pulse Oximetry 98 Oxygen Delivery Method Room Air Lab Data Lab results reviewed: Yes I reviewed the patient's lab results. Lab Results 12/17/24 11:13: Urine Color Yellow, Urine Appearance Cloudy, Urine pH 7.0, Ur Specific [place] 1.015, Urine Protein Negative, Urine Glucose (UA) Negative, Urine Ketones Negative, Urine Blood Negative, Urine Nitrate Negative, Urine Bilirubin Negative, Urine Urobilinogen 0.2, Ur Leukocyte Esterase 1+ A, Urine RBC None, Urine WBC 3-5, Ur Squamous Epith Cells 3-5, Urine Bacteria 3+ Orders (Tests/Meds): ORDERS Category Date Time Status POCUS Point of Care (ER Only) Stat Exams 12/17/24 11:35 Ordered UA [Urinalysis and Microscopic] Stat Lab 12/17/24 11:13 Completed Urine Culture Stat Micro 12/17/24 11:13 Received Medical Decision Narrative: In summary, this patient is a 19-year-old female presenting to the Emergency Department for evaluation of lower abdominal cramping after her dog jumped on her belly last night. She 17 weeks . Differential diagnoses considered include but are not limited to musculoskeletal strain/sprain, abdominal contusion, placental abruption. Ruling out the most morbid conditions drove assessment. I reviewed patient's past medical records and noted prior outpatient ultrasounds and OB evaluation. I also noted that the patient has had prior type and screen and is Rh+, no indication for RhoGAM. On exam, the patient has benign abdominal exam with no significant tenderness. OB ultrasound was performed that demonstrates good movement, good amount of amniotic fluid, no obvious acute concerns. heart rate is 160, within normal limits. Urinalysis was obtained that demonstrates no significant protein. Patient does have 3+ bacteria, though slightly contaminated with squamous cells. Will treat as asymptomatic bacteriuria in . Patient also complains of a month and a half of cough with no increased work of breathing, normal lung sounds on exam. Is possible this could be postnasal drip from allergic rhinitis, she does note issues with allergies. For bacteriuria, I prescribed cefdinir. For her URI type symptoms, I prescribed Flonase and Zyrtec. At this time, I feel that she is appropriate for discharge home. She is given instructions for close follow-up with OB as well as PCP and strict return precautions. Procedures Limited Ultrasound Findings:: Limited OB ultrasound Indication: Abdominal pain in Identified structures: Uterus Findings: Uterus: Definitive IUP, good movement, good amount of amniotic fluid FHR: 160 Impression: -IUP: Present, good movement, good amount of amniotic fluid - heart rate: 160 -Ectopic : Absent -Free fluid: Absent Images were saved to permanent archive The study was technically adequate CPT Transabdominal: 50617-44 This study was performed by me, and I personally interpreted all images/videos. Based on my clinical judgement, these images were adequate and did not necessitate further imaging. Critical Care Critical Care Time Critical Care Time: No
[2024-12-17 12:14] VITALS: BP 117/66; PULSE 104; RESP 19; TEMP 36.7; O2SAT 99
== END 2024-12-17 12:14 | disposition home or self-care (01) ==
PROVIDERS: Emergency Provider Emergency Medicine
DX: O26.892 Other specified pregnancy related conditions, second trimester (principal); R10.30 Lower abdominal pain, unspecified; R82.71 Bacteriuria; Z3A.17 17 weeks gestation of pregnancy
CPT/HCPCS: 81001; 87086; 99283

== ENCOUNTER 2024-12-21 16:20 | Emergency (ER) | payer OTHER, SELFPAY ==
[2024-12-21 16:47] VITALS: BP 122/79; PULSE 93; RESP 16; TEMP 36.7; O2SAT 100; BMI 35.1
--- OUTSIDE RECORDS SUMMARY | 2024-12-21 16:56 | XMS_ITS | Patient Health Record ---
Author Organization [facility] Address [address] [place] [address] Care Team Providers Care Learning Developer Name Role Phone Shannan Ocasio Unavailable [phone] YokoPamela Unavailable [phone] Allergies No Known Allergies Results Component Value Reference Range Flag Notes Chlamydia/Gonorrhea, CLINTON (Ap sharon/PAP) Reviewed date:07/21/2024 06:23:09 PM Interpretation:Normal Performing Lab:Natasha CROSS [facility] - [place] CLIA ID [id number], [address], [address], [place] [address], Director - Feroz Michael MD Notes/Report: Chlamydia Trachomatis Negative Negative Neisseria Gonorrhoeae Negative Negative Urine Reviewed date:07/20/2024 12:27:40 PM Interpretation:Negative Performing Lab: Notes/Report: Drug Profile Screen, Urine Reviewed date:10/01/2024 05:14:50 PM Interpretation:Normal Performing Lab: Notes/Report: [facility] Testing performed at: [UI] [facility], [address], [place], [address], , Data Processing Consultant: Marbella Corrales, PhD Testing performed at: [CB] [facility], [address] [place], [address], , Data Processing Consultant: Vignesh Manuel, PhD QNS: UNABLE TO COMPLETE TEST Amphetamines Screen, Urine Negative Etvwhj=1380 ng/mL N Barbiturates Screen, Urine Negative Eokimc=692 ng/mL N Benzodiazepines Screen, Urine Negative Chjoaa=700 ng/mL N Cannabinoid Screen, Urine See Final Results Cutoff=20 ng/mL N Cannabinoid Test Not Performed. N Test not performed. Insufficient specimen to perform or complete analysis. Cocaine (Metab.) Screen, Urine Negative Eufjai=027 ng/mL N Opiate Screen, Urine Negative Rkcppa=722 ng/mL N Opiate test includes Codeine, Morphine, Hydromorphone, Hydrocodone. Oxycodone/Oxymorphone, Urine Negative Qviwyq=088 ng/mL N Test includes Oxycodone and Oxymorphone Phencyclidine Screen, Urine Negative Cutoff=25 ng/mL N Methadone Screen, Urine Negative Dxnhbb=913 ng/mL N Propoxyphene Screen, Urine Negative Gkjucj=584 ng/mL N Meperidine Screen, Urine Negative Kmkgwt=507 ng/mL N This test was developed and its performance characteristics determined by [employer]. It has not been cleared or approved by the Food and Drug Administration. Tramadol Screen, Urine Negative Rpakyw=446 ng/mL N Fentanyl, Urine Negative Xrgchs=0496 pg/mL N Test includes Fentanyl and Norfentanyl This test was developed and its performance characteristics determined by [employer]. It has not been cleared or approved by the Food and Drug Administration. Buprenorphine, Urine Negative Cutoff=10 ng/mL N Creatinine, Urine 163.5 20.0-300.0 mg/dL N Specific Mena 1.019 N pH, Urine 7.4 4.5-8.9 N Please Note: Comment N Drug test results should be interpreted in the context of clinical information. Patient metabolic variables, specific drug chemistry, and specimen characteristics can affect test outcome. Technical consultation is available if a test result is inconsistent with an expected outcome. Email: [email or web address] Drug brands, if listed herein, are trademarks of their respective owners. Specimen Status Report Reviewed date:10/01/2024 05:14:50 PM Interpretation: Performing Lab: Notes/Report: [facility] performed at: [UI] [facility], [address] [place], [address], , Data Processing Consultant: Marbella Corrales, PhD Testing performed at: [CB] [facility], [address] [place] [address], [phone], , Data Processing Consultant: Vignesh Manuel, PhD QNS: UNABLE TO COMPLETE TEST Specimen Status Report Test Not Performed. N Test not performed. Insufficient specimen to perform or complete analysis. TEST: [id number] Car[employer] THC Conf, MS, UR Panel: [id number] Urine Reviewed date:09/27/2024 04:50:48 PM Interpretation:Positive Performing Lab: Notes/Report: Urine Culture and Sensitivit y Reviewed date:09/30/2024 07:08:46 PM Interpretation:Abnormal Performing Lab: Notes/Report: [employer] Testing performed at: [CB] [facility], [address] [place] [address], [phone], , Data Processing Consultant: Vignesh Manuel, PhD Urine Culture, Routine Final report A Result 1 Escherichia coli A Cefazolin with an NITHYA <=16 predicts susceptibility to the oral agents cefaclor, cefdinir, cefpodoxime, cefprozil, cefuroxime, cephalexin, and loracarbef when used for therapy of uncomplicated urinary tract infections due to E. coli, Klebsiella pneumoniae, and Proteus mirabilis. Greater than 100,000 colony forming units per mL Antimicrobial Susceptibility Comment N S = Susceptible; I = Intermediate; R = Resistant P = Positive; N = Negative MICS are expressed in micrograms per mL Antibiotic RSLT#1 RSLT#2 RSLT#3 RSLT#4 Amoxicillin/Clavulanic Acid S Ampicillin S Cefazolin S Cefepime S Cefoxitin S Cefpodoxime S Ceftriaxone S Ciprofloxacin S Ertapenem S Gentamicin S Levofloxacin S Meropenem S Nitrofurantoin S Piperacillin/Tazobacta m S Tetracycline S Tobramycin S Trimethoprim/Sulfa S Chlamydia/Gonorrhea, CLINTON (Ap sharon/PAP) Reviewed date:09/29/2024 08:27:44 AM Interpretation:Normal Performing Lab: Notes/Report: [employer] Testing performed at: [=G] [facility], [address] [place] [address] [place], [address], , Data Processing Consultant: Maria Teresa Villanueva MD Chlamydia trachomatis, CL[place]ON Negative Negative N Neisseria gonorrhoeae, CLINTON Negative Negative N Reason For Referral No Information Medications Medication SIG (Take, Route, Frequency, Duration) Notes Start Date End Date Status Macrobid 100 MG Capsule 1 capsule with f ood Orally every 12 hrs; Duration: 7 days 09/30/2024 Active Paliperidone ER 3 MG Tablet Extended Release 24 Hour 1 tablet in the morning Orally Once a day; Duration: 30 day(s) 07/20/2024 Active Social History Tobacco Use: Social History Observation Description Date Details (start date - stop date) Never Smoker NA - NA Sex Assigned At : Social History Observation Description Sex Assigned At Female Social History Drugs/Alcohol: Social Info Question Answer Notes Drugs Have you used drugs other than those for medical reasons in the past 12 months? No Drug/Alcohol: Social Info Question Answer Notes AUDIT-C (Standard) Did you have a drink containing alcohol in the past year? No Tobacco Use: Social Info Question Answer Notes Tobacco Control (Standard) Tobacco use: Nonsmoker Additional Details Category Social Info Options Details Miscellaneous: Domestic violence: No Do you have any episcopal, m oral, or cultural beliefs or customs that your provider should know about? No Would you object to blood products in the event of an emergency? No Problems Problem Type SNOMED Code ICD Code Onset Dates Problem Status W/U Status Risk Notes Problem Personality disorder (99587065) Personality disorder (F60.9) Active confirmed Vital Signs Blood pressure diastolic 74 mm Hg 09/27/2024 Height 5FT 1IN in 09/27/2024 Blood pressure systolic 112 mm Hg 09/27/2024 Weight 184 lbs 09/27/2024 BMI 34.76 kg/m2 09/27/2024 Encounters Encounter Location Date Provider Diagnosis [facility] [address] [facility] [address] [place] [address] 08/20/2024 Shannan Ocasio [facility] [address] [facility] [address] [place] [address] 09/30/2024 Shannan Batesin [facility] [address] [facility] [address] [place] [address] 07/19/2024 Pamela Babcock [address] [place] [address] 08/19/2024 Pamela Babcock [address] [place] [address] 07/20/2024 Pamela Babcock Instrument Repairer Helper exam without abnormal findings Z01.419 ; Encounter for test, result unknown Z32.00 ; Personality disorder F60.9 and Routine screening for STI (sexually transmitted infection) Z11.[address] [place] [address] 09/27/2024 Shannan Amarjit Encounter for test, result unknown Z32.00 and Encounter for other specified screening Z36.89 Assessments Encounter Date Diagnosis (ICD Code) Assessment Notes Treatment Notes Treatment Clinical Notes Section Notes 07/20/2024 Encounter for test, result unknown (ICD-10 - Z32.00) 07/20/2024 Instrument Repairer Helper exam without abnormal findings (ICD-10 - Z01.419) [...] Antibodies, IgG 09/27/2024 Syphilis T Pallidium Screening [place] 0 09/27/2024 *US OB Complete greater than 14 Weeks Tr ansabdominal 09/27/2024 Medical (General) History Medical History History ICD Code Anxiety DEPRESSION UTI-needs [facility] @ [facility]
--- OUTSIDE RECORDS SUMMARY | 2024-12-21 16:56 | XMS_ITS | Referral Summary ---
Author Organization [facility] Address [address] [place] [address] Care Team Providers Care Basketball Coach Name Role Phone Ailyn Rivera MD Primary Care Provid er Encounters Date Type Department Care Team Description 09/28/2024 8:15 AM EDT Office Visit [facility] [address] [place] [address], [address] [place] [address] Ailyn Rivera MD [facility] physical exam (Primary Dx); Obesity, Class [...] of Treatment Not on file Care Teams Basketball Coach Relationship Specialty Start Date End Date Ailyn Rivera MD PCP - General Internal Medicine 07/06/24
--- OUTSIDE RECORDS SUMMARY | 2024-12-21 16:56 | XMS_ITS | Clinical Summary ---
Author Organization [facility] Address [address] [place] [address] Care Team Providers Care Home Companion Name Role Phone Ailyn Rivera MD Primary Care Provid er Allergies No known active allergies Medications Paliperidone Palmitate ER (INVEGA HAFYERA) 1560 MG/5ML BROOK Inject into a large muscle. Active Active Problems Problem Noted Date Diagnosed Date Borderline personality disorder 09/28/2024 Estimated Date of Delivery Comme nts Yes 04/25/2025 Encounters Date Type Department Care Team Description 09/28/2024 8:15 AM EDT Office Visit [address], [address] [place] [address] Ailyn Rivera MD [facility] physical exam (Primary Dx); Obesity, Class II, [...] age to complete this topic Care Teams Home Companion Relationship Specialty Start Date End Date Ailyn Rivera MD PCP - General Internal Medicine 07/06/24
--- NOTE | 2024-12-21 17:06 | ED_ITS ---
<Statement entered by Rivera Palafox MD - 12/22/24 01:56> I was consulted by the CED, and we discussed the complexity of problems being addressed. I approved the treatment and management plan for this patient's care in the emergency department, thus performing a substantial portion of the medical decision making. Rivera Palafox MD Discharge Plan Disposition Patient Disposition: Home, Self-Care Prescriptions Prescriptions: No Action olanzapine [Zyprexa] 5 mg tablet 5 mg PO DAILY Qty: 30 2RF ondansetron 4 mg tablet,disintegrating 4 mg PO Q6H PRN (Reason: nausea and vomiting) Qty: 60 1RF cetirizine [Zyrtec] 10 mg tablet 10 mg PO DAILY Qty: 30 0RF fluticasone propionate [Flonase Allergy Relief] 50 mcg/actuation spray,suspension 1 spray intranasal DAILY Qty: 16 0RF Rx Instructions: administer into each nostril cefdinir 300 mg capsule 300 mg PO BID 5 Days Qty: 10 0RF Referrals Follow up/Referrals: Provider,Miriam, [Primary Care Provider, Medical] - See instructions Jessica Lang DO [Staff Physician, SALES MARKET LEADER] - See instructions Activity Restrictions/Add. Instructions Additional Instructions/Restrictions: Please follow-up with your SALES MARKET LEADER physician, tomorrow, please continue take your antibiotic therapy as prescribed, please return to the emergency department with any worsening signs or symptoms. Clinical Impressions Clinical Impression: Second trimester , Episodic lightheadedness, Asymptomatic bacteriuria during Print Language Print Language: Namibian Discharge ED Provider: Rivera Palafox General Adult HPI General Chief complaint: Dizziness Stated complaint: 17 weeks ,dizziness Time Seen by Provider: 12/21/24 17:00 Mode of Arrival: Ambulatory Source of Information: Patient Description of Symptoms (Recalled from ER Triage Doc. by RN): Patient presents to ED with c/o ongoing dizziness, reports feeling light headed. Notes she is 17 wks . History of Present Illness HPI narrative: 19-year-old G1, at approximately 17 to 18 weeks gestation presents to the emergency department with a 1.5 to 2-month history of intermittent dizziness/lightheadedness, patient states she started noticing the dizziness and lightheadedness , after she started taking olanzapine, she has been off the medication for 1.5 months now due to , and still noticed some symptomatology. Patient's symptoms are somewhat positional, as symptoms seem to be worse when going from a sitting to standing position at times, patient denies any headache, fever chills chest pain shortness of breath, no abdominal pain, no nausea no vomiting, no vaginal discharge, no vaginal bleeding, she has had uncomplicated thus far, no urinary type symptomatology, she is a non- smoker, denies any alcohol or drug use, she is been taking her vitamins at home as prescribed, has remote history of bipolar 1 disorder, history of borderline personality disorder, not currently on any medication therapy for this, she has upcoming follow-up with her SALES MARKET LEADER tomorrow. She states that she contacted her SALES MARKET LEADER office regarding the symptoms, and was recommended to come to the emergency department for workup. Initial triage vitals unremarkable. Onset (ago): month(s) Related Data Previous Rx's ?Medication ?Instructions ?Recorded olanzapine 5 mg tablet (Zyprexa) 5 mg PO DAILY #30 tab s 11/05/24 ondansetron 4 mg disintegrating 4 mg PO Q6H PRN nausea and 11/17/24 tablet vomiting #60 tabs cefdinir 300 mg capsule 300 mg PO BID 5 days #10 cap s 12/17/24 cetirizine 10 mg tablet (Zyrtec) 10 mg PO DAILY #30 ta bs 12/17/24 fluticasone propionate 50 1 spray intranasal DAILY #16 grams 12/17/24 mcg/actuation nasal spray,suspension (Flonase Allergy Relief) Allergies Allergy/AdvReac Type Severity Reaction Status Date / Time No Known Allergies Allergy Verified 12/17/24 11:39 [facility] Disclaimer: The information contained in this section may have been updated after the patient was seen, as this information can be updated by other users. Medical History Hx of bipolar disorder History of depression Hx of anxiety disorder Hx of borderline personality disorder Surgical History No significant past surgical history Social History Smoking Status: Never smoker alcohol intake: never current occupational status: unemployed Travel in the last 8 weeks?: None Have you lived/traveled outside US in past 30 days?: No Contact w/someone who lives/traveled outside US past 30 days?: No Exposure to someone with infectious disease in past 14 days?: No Do you have a fever (greater than 100.4 F or 38 C)?: No Have you tested positive for COVID-19?: No Exposed to someone with COVID-19 in past 14 days?: No Do you have a sore throat?: No Do you have a cough?: No Do you have any weakness?: No Do you have any diarrhea?: No Are you experiencing any unusual bleeding?: No Do you have any muscle aches/pain?: No Do you have any abdominal pain?: No Are you experiencing loss of taste or smell?: No ROS Obtained: Yes All systems reviewed & no additional complaints except as documented Physical Exam General General appearance: alert and in no apparent distress Head Head exam: atraumatic and normocephalic Eye Eye exam: Present PERRL and EOMI ENT ENT exam: Present mucous membranes moist Neck Neck exam: Present normal inspection Chest Chest inspection: Present normal inspection and symmetric chest wall rise Respiratory Respiratory exam: Present normal lung sounds bilaterally; Absent respiratory distress Cardiovascular Cardiovascular exam: Present regular rate and normal rhythm Abdominal Exam Abdominal exam: Present soft; Absent tenderness, guarding, rebound or rigidity Comment: Obviously abdomen Extremities Exam Extremities exam: Present normal inspection Neurological Exam Neurological exam: Present alert and oriented X3 Psychiatric Psychiatric exam: Present normal affect and other (Somewhat flight of ideas and pressured speech, could go along with her diagnosis of bipolar 1 disorder. Not currently manic per my exam.) Skin Skin exam: Present warm and dry Medical Decision Making Medical Records Medical records reviewed: Yes I reviewed the patient's medical records. Screening: Per USPSTF and CDC recommendations, given the prevalence of disease in our region, it is our hospital?s policy to screen for HIV and viral Hepatitis for all patients aged 18 and over and those with ongoing risk factors. Maximo Inquiry Pt receiving controlled substance: No Maximo was queried for this patient: No Vital Signs: 12/21/24 16:47 12/21/24 17:10 Temperature 98.1 F Temperature Source Oral Pulse Rate [Orthostatic Lying] 81 Pulse Rate [Orthostatic Sitting] 90 Pulse Rate [Orthostatic Standing] 98 H Pulse Rate [Right Brachial] 93 H Respiratory Rate 16 Blood Pressure [Orthostatic Lying] 98/52 L Blood Pressure [Orthostatic Sitting] 99/61 L Blood Pressure [Orthostatic Standing] 109/77 L Blood Pressure [Right Arm] 122/79 Blood Pressure Mean [Right Arm] 93 Blood Pressure Source [Right Arm] Automatic Cuff Blood Pressure Position [Right Arm] Sitting 02 Sat by Pulse Oximetry 100 Oxygen Delivery Method Room Air Lab Data Lab results reviewed: Yes I reviewed the patient's lab results. Lab Results 12/21/24 17:08: WBC 10.1, RBC 3.41 L, Hgb 10.8 L, Hct 32.7 L, MCV 95.9, MCH 31.7 H, MCHC 33.0, RDW 12.9, Plt Count 247, MPV 9.8, Neut % (Auto) 70.7, Lymph % (Auto) 22.6, [place] % (Auto) 4.3, Eos % (Auto) 1.1, Baso % (Auto) 0.4, Neut # (Auto) 7.2, Lymph # (Auto) 2.3, [place] # (Auto) 0.4, Eos # (Auto) 0.1, Baso # (Auto) 0.0, Sodium 132 L, Potassium 3.9, Chloride 108 H, Carbon Dioxide 23, A [place] 4.9 L, BUN 6 L, Creatinine 0.60, Estimated Creat Clear 199, Estimated GFR 127, Est GFR ( Amer) 154, Glucose 119 H, Calcium 9.1, Magnesium 1.6, Total Bilirubin 0.4, AST 20, ALT 13, Alkaline Phosphatase 60, Troponin I < 0.01, Total Protein 6.5, Albumin 3.8, Globulin 2.7, Albumin/Globulin Ratio 1.4, HCG, Quant [id number] H 12/21/24 17:32: Urine Color Yellow, Urine Appearance Slightly cloudy, Urine pH 7.0, Ur Specific [place] 1.010, Urine Protein Negative, Urine Glucose (UA) Negative, Urine Ketones Negative, Urine Blood Negative, Urine Nitrate Negative, Urine Bilirubin Negative, Urine Urobilinogen 1.0, Ur Leukocyte Esterase 1+ A, Urine RBC 5-10, Urine WBC 50-100, Ur Squamous Epith Cells 50-100, Calcium Oxalate Crystal 1+, Urine Bacteria 3+, Urine Mucus 1+ 12/21/24 17:08 12/21/24 17:08 Orders (Tests/Meds): ED MEDICATIONS Discontinued Medications Generic Name Dose Route Start Last Admin Trade Name Yasmany PRN Reason Stop Dose Admin Lactated Ringer's 1,000 mls @ 999 mls/hr 12/21/24 17:11 12/21/24 17:28 Lactated Ringer's 1000 Ml Bag IV 12/21/24 18:11 999 mls/hr .Q1H1M ONE Administration ORDERS Category Date Time Status POCUS Point of Care (ER Only) Stat Exams 12/21/24 18:16 Ordered Complete Blood Count Auto Diff Stat Lab 12/21/24 17:08 Completed Comprehensive Metabolic Panel Stat Lab 12/21/24 17:08 Completed HCG,Quantitative Stat Lab 12/21/24 17:08 Completed Magnesium Stat Lab 12/21/24 17:08 Completed Troponin I Q3H Lab 12/21/24 20:00 Ordered Troponin I Q3H Lab 12/21/24 23:00 Ordered Troponin I Stat Lab 12/21/24 17:08 Completed Urinalysis and Microscopic Stat Lab 12/21/24 17:32 Completed Urine Culture Stat Micro 12/21/24 17:32 Received Medical Decision Narrative: 19-year-old female presents to the emergency department with intermittent dizziness/lightheadedness for several months, differential diagnose include but not limited to orthostatic hypotension, cardiac arrhythmia, electrolyte disturbance, peripheral vertigo among others. I discussed this patient's case with attending physician Will obtain basic laboratory studies, hCG quant, magnesium level, troponin, urinalysis, EKG, orthostatic blood pressures, obtain POCUS ultrasound, will give 1 L LR IV. CBC is notable for hemoglobin of 10.8, hematocrit 32.7, otherwise unremarkable CBC. CMP is notable for mild hyponatremia at 132, otherwise unremarkable CMP. Negative orthostatic vital signs Urinalysis notable for 1+ leukocyte esterase, negative nitrites, negative hematuria, negative ketonuria. Troponin is less than 0.01, Urine microscopic analysis is notable for 5-10 RBCs, 50-100 WBCs, 50-100 squamous cells, plus urine bacteria, Limited OB ultrasound Indication: [-Positive test Identified structures: [-Uterus -Left adnexa -Right adnexa -Pouch of Merlin] Findings: Uterus: [Definitive IUP] FHR: [] Right adnexa: [-Normal] Left adnexa: [-Normal] Cul de sac: [-free fluid absent] Impression: -IUP: [present] - heart rate: [] -Ectopic : [absent] -Free fluid: [absent] Images [were saved] to permanent archive The study [was] technically adequate [facility] Transabdominal: [id number] This study was performed by me, and I personally interpreted all images/videos. Based on my clinical judgement, these images were [adequate/inadequate] and [did/did not] necessitate further imaging. hCG quant is 21,840, which corresponds to her estimated gestational age. Patient is currently on cefdinir 300 mg p.o. twice daily, she has several rounds of this is antibiotic therapy left as prescribed by her SALES MARKET LEADER, patient does have asymptomatic bacteria today, but is currently being treated for this, patient has follow-up with SALES MARKET LEADER physician tomorrow I recommend keep this appointment, patient was given strict ED return precautions, patient not currently dizzy, has no red flag signs or symptoms, most likely peripheral in nature/positional in nature, no neurological focal deficit, no headache, no signs or symptoms of preeclampsia, patient has been hemodynamically stable at her time in the emergency department. Patient voiced understanding and agreement with current treatment plan/discharge plan. Critical Care Critical Care Time Critical Care Time: No
[2024-12-21 17:10] VITALS: BP 109/77; BP 98/52; BP 99/61; PULSE 81; PULSE 90; PULSE 98
--- NOTE | 2024-12-21 17:10 | ECG_ITS ---
APPROVED REPORT Exam: Resting ECG HR:76 bpm ECG Measurements Heart Rate 76 AXES OK 134 P 48 QRSd 88 QRS 65 QT 351 T 22 QTc 381 Conclusion SINUS RHYTHM WITH MARKED SINUS ARRHYTHMIA BORDERLINE ECG UNCONFIRMED REPORT Electronically signed by : ANNAMARIE KOCH, 12/23/2024 01:13:05
[2024-12-21 17:23] LABS: Basophils % 0.4 % (0.1-2.0); Eosinophils # 0.1 Kmm3 (0.0-0.4); Eosinophils % 1.1 % (0.1-12.0); Hematocrit 32.7 % (37.0-47.0); Hemoglobin 10.8 g/dL (12.2-16.2); Immature Granulocytes # 0.09 10^3uL; Immature Granulocytes % 0.9 %; Lymphocytes # 2.3 K/mm3 (0.7-4.5); Lymphocytes % 22.6 % (10-50); Mean Corpuscular Hemoglobin 31.7 pg (27.0-31.2); Mean Corpuscular Volume 95.9 fl (81-99); Mean Platelet Volume 9.8 fl (7.4-10.4); Monocytes # 0.4 K/mm3 (0.1-1.0); Monocytes % 4.3 % (1.7-9.3); Neutrophils # 7.2 K/mm3 (1.8-7.8); Neutrophils % 70.7 % (37.0-80.0); Nucleated Red Blood Cells # 0 10^3/uL; Nucleated Red Blood Cells % 0 %; Platelet Count 247 K/mm3 (142-424); Red Blood Count 3.41 M/mm3 (4.20-5.40); Red Cell Distribution Width 12.9 % (11.5-17.5); Red Cell Distribution Width-SD 44.4 fL; White Blood Count 10.1 K/mm3 (4.5-13.0)
[2024-12-21] MEDS: LACTATED RINGERS 1000ML 1,000 ML 999 ML IV (17:28)
[2024-12-21 17:30] LABS: Alanine Aminotransferase 13 U/L (12-78); Albumin Level 3.8 g/dl (3.5-5.0); Albumin/Globulin Ratio 1.4 (1.1-1.8); Alkaline Phosphatase 60 U/L (38-126); Anion Gap 4.9 mEq/L (5-15); Aspartate Amino Transferase 20 U/L (14-36); Bilirubin,Total 0.4 mg/dl (0.2-1.3); Blood Urea Nitrogen 6 mg/dl (7-17); Calcium 9.1 mg/dl (8.4-10.2); Carbon Dioxide 23 mmol/L (22.0-30.0); Chloride 108 mmol/L (98-107); Creatinine Clearance Estimated 199 mL/min (50-200); Estimated Glomerular Filt Rate 127 ml/min (>60); GFR (African American) 154 ML/MIN (>60); Globulin 2.7 g/dL (1.3-3.2); Glucose 119 mg/dl (74-100); Magnesium 1.6 mg/dl (1.6-2.3); Potassium 3.9 mmoL/L (3.5-5.1); Sodium 132 mmol/L (136-145); Total Protein,Serum 6.5 g/dl (6.3-8.2)
[2024-12-21 17:37] LABS: Microscopic, Urine URINE MICROSCOPIC (MICROSCOPIC)
[2024-12-21 17:39] LABS: Bilirubin,Urine Negative (Negative); Blood, Urine Negative (Negative); Color,Urine YELLOW (Yellow); Glucose,Urine (UA) Negative (Negative); Ketones,Urine Negative (Negative); Leukocyte Esterase,Urine 1+ (Negative); Nitrate,Urine Negative (Negative); Protein,Urine Negative (Negative)
[2024-12-21 17:45] LABS: Appearance,Urine Slightly Cloudy (Clear)
[2024-12-21 17:55] LABS: Troponin I < 0.01 ng/ml (0.00-0.034)
[2024-12-21 18:15] LABS: Squamous Epithelial Cell,Urine 50-100 #/hpf (0-5); WBC,Urine 50-100 #/hpf (0-3)
[2024-12-21 18:16] LABS: Bacteria,Urine 3+ /lpf; Calcium Oxalate Crystals,Urine 1+ /lpf; Mucus,Urine 1+ /lpf
[2024-12-21 18:43] LABS: HCG,Quantitative 21840 mIU/ml (0-5.42)
[2024-12-21 18:54] VITALS: BP 102/61; PULSE 90; RESP 19; TEMP 36.8; O2SAT 99
== END 2024-12-21 19:02 | disposition home or self-care (01) ==
PROVIDERS: Physician Assistant; Emergency Provider Emergency Medicine
DX: O26.892 Other specified pregnancy related conditions, second trimester (principal); R42 Dizziness and giddiness; R82.71 Bacteriuria; Z3A.17 17 weeks gestation of pregnancy
CPT/HCPCS: 80053; 81001; 83735; 84484; 84702; 85025; 87086; 93005; 96360; 99284; J7120

== ENCOUNTER 2024-12-27 18:14 | Emergency (ER) | payer OTHER, SELFPAY ==
--- OUTSIDE RECORDS SUMMARY | 2024-12-27 18:37 | XMS_ITS | Clinical Summary ---
Author Organization [facility] Address [address] [place] [address] Care Team Providers Care Product Builder Name Role Phone Ailyn Rivera MD Primary Care Provid er Allergies No known active allergies Medications Paliperidone Palmitate ER (INVEGA HAFYERA) 1560 MG/5ML BROOK Inject into a large muscle. Active Active Problems Problem Noted Date Diagnosed Date Borderline personality disorder 09/28/2024 Estimated Date of Delivery Comme nts Yes 04/25/2025 Encounters Date Type Department Care Team Description 09/28/2024 8:15 AM EDT Office Visit [address], [address] [place] [address] Ailyn Rivera MD [facility] physical exam (Primary Dx); Obesity, Class [...] age to complete this topic Care Teams Product Builder Relationship Specialty Start Date End Date Ailyn Rivera MD PCP - General Internal Medicine 07/06/24
--- OUTSIDE RECORDS SUMMARY | 2024-12-27 18:37 | XMS_ITS | Referral Summary ---
Author Organization [facility] Address [address] [place] [address] Care Team Providers Care Business Systems Analyst Name Role Phone Ailyn Rivera MD Primary Care Provid er Encounters Date Type Department Care Team Description 09/28/2024 8:15 AM EDT Office Visit [facility] [address] [place] [address], [address] [place] [address] Ailyn Rivera MD [facility] physical exam (Primary Dx); Obesity, Class II, [...] of Treatment Not on file Care Teams Business Systems Analyst Relationship Specialty Start Date End Date Ailyn Rivera MD PCP - General Internal Medicine 07/06/24
--- OUTSIDE RECORDS SUMMARY | 2024-12-27 18:38 | XMS_ITS | Patient Health Record ---
Author Organization [facility] Address [address] [place] [address] Care Team Providers Care Story Editor Name Role Phone Shannan Ocasio Unavailable [phone] YokoPamela Unavailable [phone] Allergies No Known Allergies Results Component Value Reference Range Flag Notes Chlamydia/Gonorrhea, CLINTON (Ap sharon/PAP) Reviewed date:07/21/2024 06:23:09 PM Interpretation:Normal Performing Lab:Natasha CROSS [facility] - [place] CLIA ID [id number], [address], [address], [place] [address], Director - Feroz Michael MD Notes/Report: Chlamydia Trachomatis Negative Negative Neisseria Gonorrhoeae Negative Negative Urine Reviewed date:07/20/2024 12:27:40 PM Interpretation:Negative Performing Lab: Notes/Report: Chlamydia/Gonorrhea, CLINTON (Ap shraon/PAP) Reviewed date:09/29/2024 08:27:44 AM Interpretation:Normal Performing Lab: Notes/Report: [facility] Testing performed at: [=G] [address], [address], , Clerical Clerk: Maria Teresa Villanueva MD Chlamydia trachomatis, CLINTON Negative Negative N Neisseria gonorrhoeae, CLINTON Negative Negative N Drug Profile Screen, Urine Reviewed date:10/01/2024 05:14:50 PM Interpretation:Normal Performing Lab: Notes/Report: [facility] performed at: [facility]UI[facility], [address], [place], [address], , Clerical Clerk: Marbella Corrales, PhD Testing performed at: [CB] [facility] [place], [address] [facility], [place], [address], , Clerical Clerk: Vignesh Manuel, PhD QNS: UNABLE TO COMPLETE TEST Amphetamines Screen, Urine Negative Nmsmov=8632 ng/mL N Barbiturates Screen, Urine Negative Syurhl=224 ng/mL N Benzodiazepines Screen, Urine Negative Ahhtvt=339 ng/mL N Cannabinoid Screen, Urine See Final Results Cutoff=20 ng/mL N Cannabinoid Test Not Performed. N Test not performed. Insufficient specimen to perform or complete analysis. Cocaine (Metab.) Screen, Urine Negative Chnikh=706 ng/mL N Opiate Screen, Urine Negative Wxlshr=454 ng/mL N Opiate test includes Codeine, Morphine, Hydromorphone, Hydrocodone. Oxycodone/Oxymorphone, Urine Negative Nekkte=472 ng/mL N Test includes Oxycodone and Oxymorphone Phencyclidine Screen, Urine Negative Cutoff=25 ng/mL N Methadone Screen, Urine Negative Dhfsre=214 ng/mL N Propoxyphene Screen, Urine Negative Stbvrr=054 ng/mL N Meperidine Screen, Urine Negative Ctcpip=490 ng/mL N determined by [facility]. It has not been cleared or approved by the Food and Drug Administration. This test was developed and its performance characteristics Tramadol Screen, Urine Negative Woqlbq=759 ng/mL N Fentanyl, Urine Negative Edfkwg=1507 pg/mL N This test was developed and its performance characteristics determined by [facility]. It has not been cleared or Test includes Fentanyl and Norfentanyl approved by the Food and Drug Administration. Buprenorphine, Urine Negative Cutoff=10 ng/mL N Creatinine, Urine 163.5 20.0-300.0 mg/dL N Specific [place] 1.019 N pH, Urine 7.4 4.5-8.9 N Please Note: Comment N expected outcome. Drug brands, if listed herein, are trademarks of their respective Drug test results should be interpreted in the context of clinical Email: [email or web address] specimen characteristics can affect test outcome. Technical owners. information. Patient metabolic variables, specific drug chemistry, and consultation is available if a test result is inconsistent with an Urine Culture and Sensitivit y Reviewed date:09/30/2024 07:08:46 PM Interpretation:Abnormal Performing Lab: Notes/Report: Testing performed at: [CB] [facility], [address], , Clerical Clerk: Vignesh Manuel, PhD [facility] Urine Culture, Routine Final report A Result 1 Escherichia coli A Cefazolin with an NITHYA <=16 predicts susceptibility to the oral agents cefaclor, cefdinir, cefpodoxime, cefprozil, cefuroxime, cephalexin, and loracarbef when used for therapy of uncomplicated urinary tract infections due to E. coli, Klebsiella pneumoniae, and Proteus mirabilis. Greater than 100,000 colony forming units per mL Antimicrobial Susceptibility Comment N Ciprofloxacin S Cefazolin S Antibiotic RSLT#1 RSLT#2 RSLT#3 RSLT#4 Nitrofurantoin S Cefpodoxime S P = Positive; N = Negative Levofloxacin S Cefoxitin S S = Susceptible; I = Intermediate; R = Resistant Gentamicin S Ampicillin S Ceftriaxone S Meropenem S Trimethoprim/Sulfa S Tetracycline S Tobramycin S MICS are expressed in micrograms per mL Cefepime S Ertapenem S Piperacillin/Tazobacta m S Amoxicillin/Clavulanic Acid S Urine Reviewed date:09/27/2024 04:50:48 PM Interpretation:Positive Performing Lab: Notes/Report: Specimen Status Report Reviewed date:10/01/2024 05:14:50 PM Interpretation: Performing Lab: Notes/Report: [facility] Testing performed at: [facility]UI[facility] [place], [address], , Clerical Clerk: Marbella Corrales, PhD Testing performed at: [CB] [facility], [address] [place] [address], [address], , Clerical Clerk: Vignesh Manuel, PhD QNS: UNABLE TO COMPLETE TEST Specimen Status Report Test Not Performed. N Test not performed. Insufficient specimen to perform or complete analysis. TEST: [id number] Carboxy THC Conf, MS, UR Panel: [id number] Reason For Referral No Information Medications Medication [...] Domestic violence: No Do you have any synagogue, m oral, or cultural beliefs or customs that your provider should know about? No Would you object to blood products in the event of an emergency? No Problems Problem Type SNOMED Code ICD Code Onset Dates Problem Status W/U Status Risk Notes Problem Personality disorder (F60.9) Active confirmed Vital Signs Blood pressure diastolic 74 mm Hg 09/27/2024 Height 5FT 1IN in 09/27/2024 Blood pressure systolic 112 mm Hg 09/27/2024 Weight 184 lbs 09/27/2024 BMI 34.76 kg/m2 09/27/2024 Encounters Encounter Location Date Provider Diagnosis [facility] [address] [facility] [address] [place] [address] 08/20/2024 Shannan Ocasio [facility] [address] [facility] [address] [place] [address] 09/30/2024 Shannan Ocasio [facility] [address] [facility] [address] [place] [address] 07/19/2024 Pamela Babcock [facility] [address] [facility] [address] [place] [address] 08/19/2024 Pamela Babcock [facility] [address] [facility] [address] [place] [address] 07/20/2024 Pamela Babcock Emergency Care Attendant exam without abnormal findings Z01.419 ; Encounter for test, result unknown Z32.00 ; Personality disorder F60.9 and Routine screening for STI (sexually transmitted infection) Z11.3 [facility] [address] [facility] [address] [place] [address] 09/27/2024 Shannan Amarjit Encounter for test, result unknown Z32.00 and Encounter for other specified screening Z36.89 Assessments Encounter Date Diagnosis (ICD Code) Assessment Notes Treatment Notes Treatment Clinical Notes Section Notes 07/20/2024 Encounter for test, result unknown (ICD-10 - Z32.00) 07/20/2024 Emergency Care Attendant exam without abnormal findings (ICD-10 - Z01.419) [...] Antibodies, IgG 09/27/2024 Syphilis T Pallidium Screening [place] 0 09/27/2024 *US OB Complete greater than 14 Weeks Tr ansabdominal 09/27/2024 Medical (General) History Medical History History ICD Code Anxiety DEPRESSION UTI-needs [facility] @ [facility]
[2024-12-27 18:39] VITALS: BP 128/71; PULSE 90; RESP 17; TEMP 36.8; O2SAT 98; BMI 33.2
--- NOTE | 2024-12-27 18:42 | ED_ITS ---
Discharge Plan Disposition Patient Disposition: Home, Self-Care Condition: Good Prescriptions Prescriptions: No Action olanzapine [Zyprexa] 5 mg tablet 5 mg PO DAILY Qty: 30 2RF ondansetron 4 mg tablet,disintegrating 4 mg PO Q6H PRN (Reason: nausea and vomiting) Qty: 60 1RF cetirizine [Zyrtec] 10 mg tablet 10 mg PO DAILY Qty: 30 0RF fluticasone propionate [Flonase Allergy Relief] 50 mcg/actuation spray,suspension 1 spray intranasal DAILY Qty: 16 0RF Rx Instructions: administer into each nostril cefdinir 300 mg capsule 300 mg PO BID 5 Days Qty: 10 0RF Referrals Follow up/Referrals: Provider,Referral, MD [Primary Care Provider, Medical] - See instructions Activity Restrictions/Add. Instructions Additional Instructions/Restrictions: Please return to the emergency department any worsening signs or symptoms, please follow-up with your [employer] INSURANCE EXAMINER, continue take all medications as prescribed. Clinical Impressions Clinical Impression: Abdominal cramping Print Language Print Language: Nigerien Discharge ED Provider: Delgado Merino General Adult HPI <MARC Gonzalez - Last Filed: 12/27/24 20:04> General Chief complaint: Abdominal Pain Stated complaint: 18 weeks with cramping,bleeding Time Seen by Provider: 12/27/24 18:34 Mode of Arrival: Ambulatory Source of Information: Patient Limitations: No Limitations History of Present Illness HPI narrative: 19-year-old female who is A0 A0, at approximately 18 weeks 6 days gestation, presents to the emergency department with some abdominal cramping and vaginal discharge and bleeding , not enough to fill the toilet bowl, that occurred today, patient [place] any fever chills chest pain shortness of breath nausea vomiting, constipation diarrhea, no urinary type symptomatology, patient has recently been seen in the emergency department for similar complaint multiple times, recently diagnosed with asymptomatic bacteriuria, was on p.o. antibiotic, took medication as prescribed, and has finished, recently seen GRINDER [employer]ESSER physician on 12/22/2024, has upcoming anatomy scan scheduled in 10 days, uncomplicated thus far, does have some socioeconmic status, currently being followed by method consultant per T[employer] INSURANCE EXAMINER physician note. Patient denies any other acute symptomatology at this time, other past medical history notable for no positive antibody negative screen, bipolar 1 disorder, borderline personality disorder, MICK, MDD, previously on antipsychotic medication, now currently not taking any psychiatric medications during this . Initial triage vitals are unremarkable. Onset (ago): hour(s) Related Data Previous Rx's ?Medication ?Instructions ?Recorded olanzapine 5 mg tablet (Zyprexa) 5 mg PO DAILY #30 tab s 11/05/24 ondansetron 4 mg disintegrating 4 mg PO Q6H PRN nausea and 11/17/24 tablet vomiting #60 tabs cefdinir 300 mg capsule 300 mg PO BID 5 days #10 cap s 12/17/24 cetirizine 10 mg tablet (Zyrtec) 10 mg PO DAILY #30 ta bs 12/17/24 fluticasone propionate 50 1 spray intranasal DAILY #16 grams 12/17/24 mcg/actuation nasal spray,suspension (Flonase Allergy Relief) Allergies Allergy/AdvReac Type Severity Reaction Status Date / Time No Known Allergies Allergy Verified 12/22/24 13:05 [facility] <MARC Gonzalez - Last Filed: 12/27/24 20:04> [facility] Disclaimer: The information contained in this section may have been updated after the patient was seen, as this information can be updated by other users. Medical History Hx of bipolar disorder History of depression Hx of anxiety disorder Hx of borderline personality disorder Surgical History No significant past surgical history Social History Smoking Status: Never smoker alcohol intake: never current occupational status: unemployed Travel in the last 8 weeks?: None Have you lived/traveled outside US in past 30 days?: No Contact w/someone who lives/traveled outside US past 30 days?: No Exposure to someone with infectious disease in past 14 days?: No Do you have a fever (greater than 100.4 F or 38 C)?: No Have you tested positive for COVID-19?: No Exposed to someone with COVID-19 in past 14 days?: No Do you have a sore throat?: No Do you have a cough?: No Do you have any weakness?: No Do you have any diarrhea?: No Are you experiencing any unusual bleeding?: No Do you have any muscle aches/pain?: No Do you have any abdominal pain?: No Are you experiencing loss of taste or smell?: No <MARC Gonzalez - Last Filed: 12/27/24 20:04> ROS Obtained: Yes All systems reviewed & no additional complaints except as documented Physical Exam <MARC Gonzalez - Last Filed: 12/27/24 20:04> General General appearance: alert, in no apparent distress and anxious Comment: Somewhat anxious. Female, with some flight of ideas Head Head exam: atraumatic and normocephalic Eye Eye exam: Present PERRL and EOMI ENT ENT exam: Present mucous membranes moist Neck Neck exam: Present normal inspection Chest Chest inspection: Present normal inspection and symmetric chest wall rise Respiratory Respiratory exam: Present normal lung sounds bilaterally; Absent respiratory distress Cardiovascular Cardiovascular exam: Present regular rate and normal rhythm Abdominal Exam Abdominal exam: Present soft; Absent tenderness or rebound Comment: Obviously abdomen Extremities Exam Extremities exam: Present normal inspection Neurological Exam Neurological exam: Present alert and oriented X3 Psychiatric Psychiatric exam: Present normal affect Skin Skin exam: Present warm and dry Medical Decision Making <MARC Gonzalez - Last Filed: 12/27/24 20:04> Medical Records Medical records reviewed: Yes I reviewed the patient's medical records. Screening: Per USPSTF and CDC recommendations, given the prevalence of disease in our region, it is our hospital?s policy to screen for HIV and viral Hepatitis for all patients aged 18 and over and those with ongoing risk factors. Maximo Inquiry Pt receiving controlled substance: No Maximo was queried for this patient: No Vital Signs: 12/27/24 18:39 12/27/24 20:24 Temperature 98.2 F 98.2 F Temperature Source Oral Oral Pulse Rate 90 Pulse Rate [Right] 90 Respiratory Rate 17 18 Blood Pressure 128/71 Blood Pressure [Right Arm] 128/71 Blood Pressure Mean [Right Arm] 90 Blood Pressure Source Automatic Cuff Blood Pressure Source [Right Arm] Automatic Cuff Blood Pressure Position [Right Arm] Supine 02 Sat by Pulse Oximetry 98 Oxygen Delivery Method Room Air Room Air Lab Data Lab results reviewed: Yes I reviewed the patient's lab results. Lab Results 12/27/24 18:35: Urine Color Yellow, Urine Appearance Clear, Urine pH 7.0, Ur Specific [place] 1.015, Urine Protein Negative, Urine Glucose (UA) Negative, Urine Ketones Negative, Urine Blood Negative, Urine Nitrate Negative, Urine Bilirubin Negative, Urine Urobilinogen 0.2, Ur Leukocyte Esterase Negative, Urine RBC Occasional, Urine WBC 3-5, Ur Squamous Epith Cells 5-10, Amorphous Sediment 2+, Urine Bacteria 1+ 12/27/24 19:17: WBC 10.6, RBC 3.11 L, Hgb 10.3 L, Hct 29.4 L, MCV 94.5, MCH 33.1 H, MCHC 35.0, RDW 13.0, Plt Count 211, MPV 9.9, Neut % (Auto) 65.8, Lymph % (Auto) 24.9, [place] % (Auto) 6.8, Eos % (Auto) 1.4, Baso % (Auto) 0.4, Neut # (Auto) 7.0, Lymph # (Auto) 2.6, [place] # (Auto) 0.7, Eos # (Auto) 0.2, Baso # (Auto) 0.0, Sodium 136, Potassium 3.7, Chloride 112 H, Carbon Dioxide 20 L, Anion Gap 7.7, BUN 6 L, Creatinine 0.50 L, Estimated Creat Clear 226, Estimated GFR 157, Est GFR ( Amer) 190, Glucose 112 H, Calcium 9.1, Total Bilirubin 0.2, AST 19, ALT 12, Alkaline Phosphatase 61, Total Protein 6.0 L, Albumin 3.4 L , Globulin 2.6, Albumin/Globulin Ratio 1.3, HCG, Quant [id number] H 12/27/24 19:17 12/27/24 19:17 Orders (Tests/Meds): ORDERS Category Date Time Status POCUS Point of Care (ER Only) Stat Exams 12/27/24 18:41 Completed CBC w/Auto Diff [Complete Blood Count Auto Diff] Stat Lab 12/27/24 19:17 Completed CMP [Comprehensive Metabolic Panel] Stat Lab 12/27/24 19:17 Completed HCG,Quantitative Stat Lab 12/27/24 19:17 Completed UA [Urinalysis and Microscopic] Stat Lab 12/27/24 18:35 Completed Medical Decision Narrative: 19-year-old female presents the emergency department with abdominal cramping, complaint of vaginal bleeding/vaginal discharge, differential diagnose include not limited to, acute UTI, ectopic , implantation of bleeding, anxiety reaction, panic attack, round ligament pain, subchorionic hematoma, vaginitis among others. I discussed patient case with attending physician Dr. Merino Will obtain basic operatory studies, UA, hCG quant, as well as POCUS ultrasound. Urinalysis is unremarkable, negative ketonuria, negative hematuria, negative nitrites, negative leukocyte Estrace, negative proteinuria Urinalysis is notable for occasional RBCs, 3-5 WBCs, 5-10 epithelials squamous cells, and 1+ urine bacteria. CBC is notable for hemoglobin of 10.3, medic at 29.4, stable. CMP is unremarkable. I along with the attending physician performed OB ultrasound at the bedside, see ultrasound dictation note for full details Limited OB ultrasound Indication: [-18 weeks -Vaginal bleeding -abdominal pain -] Identified structures: [-Uterus -Left adnexa -Right adnexa -Pouch of Merlin] Findings: Uterus: [Definitive IUP] FHR: [143] Right adnexa: [-Normal] Left adnexa: [-Normal] Cul de sac: [-free fluid absent] Impression: -IUP: [present] - heart rate: [143] -Ectopic : [absent] -Free fluid: [absent] Images [were saved] to permanent archive The study [was] technically adequate CPT Transabdominal: 17498-40 This study was performed by me, and I personally interpreted all images/videos. Based on my clinical judgement, these images were [adequate/inadequate] and [did/did not] necessitate further imaging. Patient would like to be discharged home to self-care, pending hCG quant, however patient had 18-week approximately 3-day appearing with crown circumference, free fluid is absent, no evidence of any ectopic , no free fluid noted on her bedside ultrasound, will call patient with results of hCG if any changes, patient is cleared to be discharged home to self-care, patient is hemodynamically stable. Patient will follow-up with OB in the upcoming days. Patient was given strict ED return precautions. <Delgado Merino MD - Last Filed: 12/27/24 21:02> Vital Signs: 12/27/24 18:39 12/27/24 20:24 Temperature 98.2 F 98.2 F Temperature Source Oral Oral Pulse Rate 90 Pulse Rate [Right] 90 Respiratory Rate 17 18 Blood Pressure 128/71 Blood Pressure [Right Arm] 128/71 Blood Pressure Mean [Right Arm] 90 Blood Pressure Source Automatic Cuff Blood Pressure Source [Right Arm] Automatic Cuff Blood Pressure Position [Right Arm] Supine 02 Sat by Pulse Oximetry 98 Oxygen Delivery Method Room Air Room Air Lab Data Lab Results 12/27/24 18:35: Urine Color Yellow, Urine Appearance Clear, Urine pH 7.0, Ur Specific [place] 1.015, Urine Protein Negative, Urine Glucose (UA) Negative, Urine Ketones Negative, Urine Blood Negative, Urine Nitrate Negative, Urine Bilirubin Negative, Urine Urobilinogen 0.2, Ur Leukocyte Esterase Negative, Urine RBC Occasional, Urine WBC 3-5, Ur Squamous Epith Cells 5-10, Amorphous Sediment 2+, Urine Bacteria 1+ 12/27/24 19:17: WBC 10.6, RBC 3.11 L, Hgb 10.3 L, Hct 29.4 L, MCV 94.5, MCH 33.1 H, MCHC 35.0, RDW 13.0, Plt Count 211, MPV 9.9, Neut % (Auto) 65.8, Lymph % (Auto) 24.9, [place] % (Auto) 6.8, Eos % (Auto) 1.4, Baso % (Auto) 0.4, Neut # (Auto) 7.0, Lymph # (Auto) 2.6, [place] # (Auto) 0.7, Eos # (Auto) 0.2, Baso # (Auto) 0.0, Sodium 136, Potassium 3.7, Chloride 112 H, Carbon Dioxide 20 L, Anion Gap 7.7, BUN 6 L, Creatinine 0.50 L, Estimated Creat Clear 226, Estimated GFR 157, Est GFR ( Amer) 190, Glucose 112 H, Calcium 9.1, Total Bilirubin 0.2, AST 19, ALT 12, Alkaline Phosphatase 61, Total Protein 6.0 L, Albumin 3.4 L , Globulin 2.6, Albumin/Globulin Ratio 1.3, HCG, Quant [id number] H Orders (Tests/Meds): ORDERS Category Date Time Status POCUS Point of Care (ER Only) Stat Exams 12/27/24 18:41 Completed CBC w/Auto Diff [Complete Blood Count Auto Diff] Stat Lab 12/27/24 19:17 Completed CMP [Comprehensive Metabolic Panel] Stat Lab 12/27/24 19:17 Completed HCG,Quantitative Stat Lab 12/27/24 19:17 Completed UA [Urinalysis and Microscopic] Stat Lab 12/27/24 18:35 Completed Medical Decision Narrative: 19-year-old female presents the emergency department with abdominal cramping, complaint of vaginal bleeding/vaginal discharge, differential diagnose include not limited to, acute UTI, ectopic , implantation of bleeding, anxiety reaction, panic attack, round ligament pain, subchorionic hematoma, vaginitis among others. I discussed patient case with attending physician Dr. Merino Will obtain basic operatory studies, UA, hCG quant, as well as POCUS ultrasound. Urinalysis is unremarkable, negative ketonuria, negative hematuria, negative nitrites, negative leukocyte Estrace, negative proteinuria Urinalysis is notable for occasional RBCs, 3-5 WBCs, 5-10 epithelials squamous cells, and 1+ urine bacteria. CBC is notable for hemoglobin of 10.3, medic at 29.4, stable. CMP is unremarkable. I along with the attending physician performed OB ultrasound at the bedside, see ultrasound dictation note for full details Limited OB ultrasound Indication: [-18 weeks -Vaginal bleeding -abdominal pain -] Identified structures: [-Uterus -Left adnexa -Right adnexa -Pouch of Merlin] Findings: Uterus: [Definitive IUP] FHR: [143] Right adnexa: [-Normal] Left adnexa: [-Normal] Cul de sac: [-free fluid absent] Impression: -IUP: [present] - heart rate: [143] -Ectopic : [absent] -Free fluid: [absent] Images [were saved] to permanent archive The study [was] technically adequate CPT Transabdominal: 53679-00 This study was performed by me, and I personally interpreted all images/videos. Based on my clinical judgement, these images were [adequate/inadequate] and [did/did not] necessitate further imaging. Patient would like to be discharged home to self-care, pending hCG quant, however patient had 18-week approximately 3-day appearing with crown circumference, free fluid is absent, no evidence of any ectopic , no free fluid noted on her bedside ultrasound, will call patient with results of hCG if any changes, patient is cleared to be discharged home to self-care, patient is hemodynamically stable. Patient will follow-up with OB in the upcoming days. Patient was given strict ED return precautions. I was consulted by the CED, and we discussed the complexity of the problems being addressed. I approved the treatment and management plan for this patient's care in the Emergency Department, thus performing a substantive portion of the medical decision making. Delgado Merino MD Critical Care <MARC Gonzalez - Last Filed: 12/27/24 20:04> Critical Care Time Critical Care Time: No
[2024-12-27 18:44] LABS: Microscopic, Urine URINE MICROSCOPIC (MICROSCOPIC)
[2024-12-27 18:47] LABS: Appearance,Urine CLEAR (Clear); Bilirubin,Urine Negative (Negative); Blood, Urine Negative (Negative); Color,Urine YELLOW (Yellow); Glucose,Urine (UA) Negative (Negative); Ketones,Urine Negative (Negative); Leukocyte Esterase,Urine Negative (Negative); Nitrate,Urine Negative (Negative); Protein,Urine Negative (Negative); Specific Gravity, Urine 1.015 (1.005-1.030); Urobilinogen,Urine 0.2 EU/dl (0.2)
--- NOTE | 2024-12-27 19:05 | PC.NURSE ---
attempted to obtain FHT via doppler at bedside, unsuccessful.
--- NOTE | 2024-12-27 19:08 | PC.NURSE ---
Report received from Mckenzie RN Pt resting quietly in bed MD at bedside to do ultrasound Skin pink warm and dry. Resp full and easy Speech clear and appropriate
[2024-12-27 19:18] LABS: Amorphous Sediment,Urine 2+ /lpf; Bacteria,Urine 1+ /lpf; RBC,Urine Occasional #/hpf (0-3)
[2024-12-27 19:25] LABS: Basophils % 0.4 % (0.1-2.0); Eosinophils # 0.2 Kmm3 (0.0-0.4); Eosinophils % 1.4 % (0.1-12.0); Hematocrit 29.4 % (37.0-47.0); Hemoglobin 10.3 g/dL (12.2-16.2); Immature Granulocytes # 0.07 10^3uL; Immature Granulocytes % 0.7 %; Lymphocytes # 2.6 K/mm3 (0.7-4.5); Lymphocytes % 24.9 % (10-50); Mean Corpuscular Hemoglobin 33.1 pg (27.0-31.2); Mean Corpuscular Volume 94.5 fl (81-99); Mean Platelet Volume 9.9 fl (7.4-10.4); Monocytes # 0.7 K/mm3 (0.1-1.0); Monocytes % 6.8 % (1.7-9.3); Neutrophils % 65.8 % (37.0-80.0); Nucleated Red Blood Cells # 0 10^3/uL; Nucleated Red Blood Cells % 0 %; Platelet Count 211 K/mm3 (142-424); Red Blood Count 3.11 M/mm3 (4.20-5.40); Red Cell Distribution Width-SD 44.7 fL; White Blood Count 10.6 K/mm3 (4.5-13.0)
[2024-12-27 19:29] LABS: Chloride 112 mmol/L (98-107)
[2024-12-27 19:30] LABS: Albumin Level 3.4 g/dl (3.5-5.0); Potassium 3.7 mmoL/L (3.5-5.1); Sodium 136 mmol/L (136-145)
[2024-12-27 19:33] LABS: Alanine Aminotransferase 12 U/L (12-78); Albumin/Globulin Ratio 1.3 (1.1-1.8); Alkaline Phosphatase 61 U/L (38-126); Anion Gap 7.7 mEq/L (5-15); Aspartate Amino Transferase 19 U/L (14-36); Bilirubin,Total 0.2 mg/dl (0.2-1.3); Blood Urea Nitrogen 6 mg/dl (7-17); Calcium 9.1 mg/dl (8.4-10.2); Carbon Dioxide 20 mmol/L (22.0-30.0); Creatinine Clearance Estimated 226 mL/min (50-200); Estimated Glomerular Filt Rate 157 ml/min (>60); GFR (African American) 190 ML/MIN (>60); Globulin 2.6 g/dL (1.3-3.2); Glucose 112 mg/dl (74-100)
[2024-12-27 20:24] VITALS: BP 128/71; PULSE 90; RESP 18; TEMP 36.8
== END 2024-12-27 20:26 | disposition home or self-care (01) ==
PROVIDERS: Emergency Provider Emergency Medicine
DX: O26.892 Other specified pregnancy related conditions, second trimester (principal); R10.9 Unspecified abdominal pain; Z3A.18 18 weeks gestation of pregnancy
CPT/HCPCS: 80053; 81001; 84702; 85025; 99283

== ENCOUNTER 2024-12-31 20:28 | Emergency (ER) | payer OTHER, SELFPAY ==
--- NOTE | 2024-12-31 20:37 | ECG_ITS ---
APPROVED REPORT Exam: Resting ECG HR:95 bpm ECG Measurements Heart Rate 95 AXES MT 140 P 56 QRSd 73 QRS 65 QT 336 T 27 QTc 389 Conclusion SINUS RHYTHM NONSPECIFIC T-WAVE ABNORMALITY No STEMI Electronically signed by : ELIZABETH ANGUIANO, 12/31/2024 23:51:36
[2024-12-31 20:40] VITALS: BP 138/83; PULSE 100; RESP 20; TEMP 36.9; O2SAT 100; BMI 33.2
--- OUTSIDE RECORDS SUMMARY | 2024-12-31 20:40 | XMS_ITS | Referral Summary ---
Author Organization [facility] Address [address] [place] [id number] Care Team Providers Care Costume Maker Name Role Phone Ailyn Rivera MD Primary [...] of Treatment Not on file Care Teams Costume Maker Relationship Specialty Start Date End Date Ailyn Rivera MD PCP - General Internal Medicine 07/06/24
--- OUTSIDE RECORDS SUMMARY | 2024-12-31 20:40 | XMS_ITS | Clinical Summary ---
Author Organization [facility] Address [address] [place] [phone] Care Team Providers Care Edge Drummer Name Role Phone Ailyn Rivera MD Primary [...] of 2 - Standard) 2020 COVID-19 Vaccine ( - season) 2024 11/08/2020, 10/14/2020 RSV Vaccine [...] age to complete this topic Care Teams Edge Drummer Relationship Specialty Start Date End Date Ailyn Rivera MD PCP - General Internal Medicine 07/06/24
--- OUTSIDE RECORDS SUMMARY | 2024-12-31 20:40 | XMS_ITS | Patient Health Record ---
Author Organization [facility] Address [address] [place] [address] Care Team Providers Care Second Floor Operator Name Role Phone Shannan Ocasio Unavailable [phone] YokoPamela Unavailable [phone] Allergies No Known Allergies Results Component Value Reference Range Flag Notes Chlamydia/Gonorrhea, [place] (Ap sharon/PAP) Reviewed date:07/21/2024 06:23:09 PM Interpretation:Normal Performing Lab:Natasha CROSS [facility] - MW CARINA CLIA ID [id number], [address], [address], [place] [address], Director - Feroz Michael MD Notes/Report: Chlamydia Trachomatis Negative Negative Neisseria Gonorrhoeae Negative Negative Urine Reviewed date:07/20/2024 12:27:40 PM Interpretation:Negative Performing Lab: Notes/Report: Urine Reviewed date:09/27/2024 04:50:48 PM Interpretation:Positive Performing Lab: Notes/Report: Specimen Status Report Reviewed date:10/01/2024 05:14:50 PM Interpretation: Performing Lab: Notes/Report: [facility] Testing performed at: [UI] [facility], [facility] [place], [address], , Cloth Dyeing Range Tender: Marbella Corrales, PhD Testing performed at: [CB] [facility], [address] [place], [address], , Cloth Dyeing Range Tender: Vignesh Manuel, PhD QNS: UNABLE TO COMPLETE TEST Specimen Status Report Test Not Performed. N Test not performed. Insufficient specimen to perform or complete analysis. TEST: [id number] Katie Valencia, [place], UR Panel: [id number] Urine Culture and Sensitivit y Reviewed date:09/30/2024 07:08:46 PM Interpretation:Abnormal Performing Lab: Notes/Report: [facility] Testing performed at: [CB] [facility], [address] [place] [address], [phone], , Cloth Dyeing Range Tender: Vignesh Manuel, PhD Urine Culture, Routine Final [...] mL Antimicrobial Susceptibility Comment N Ciprofloxacin S Antibiotic RSLT#1 RSLT#2 RSLT#3 RSLT#4 Cefpodoxime S P = Positive; N = Negative Cefazolin S Nitrofurantoin S Levofloxacin S S = Susceptible; I = Intermediate; R = Resistant Cefoxitin S Gentamicin S Ampicillin S Trimethoprim/Sulfa S Tetracycline S Ceftriaxone S Meropenem S MICS are expressed in micrograms per mL Ertapenem S Piperacillin/Tazobacta m S Tobramycin S Cefepime S Amoxicillin/Clavulanic Acid S Drug Profile Screen, Urine Reviewed date:10/01/2024 05:14:50 PM Interpretation:Normal Performing Lab: Notes/Report: [facility] Testing performed at: [UI] [facility], [address] [place], [address], , Cloth Dyeing Range Tender: Marbella Corrales, PhD Testing performed at: [CB] [facility], [address] [place], [address], , Cloth Dyeing Range Tender: Vignesh Manuel, PhD QNS: UNABLE TO COMPLETE TEST Amphetamines Screen, Urine Negative Szuldd=7813 ng/mL N Barbiturates Screen, Urine Negative Rakjkz=496 ng/mL N Benzodiazepines Screen, Urine Negative Vomehc=758 ng/mL N Cannabinoid Screen, Urine See Final Results Cutoff=20 ng/mL N Cannabinoid Test Not Performed. N Test not performed. Insufficient specimen to perform or complete analysis. Cocaine (Metab.) Screen, Urine Negative Iipefw=910 ng/mL N Opiate Screen, Urine Negative Seloag=721 ng/mL N Opiate test includes Codeine, Morphine, Hydromorphone, Hydrocodone. Oxycodone/Oxymorphone, Urine Negative Fpuzxr=008 ng/mL N Test includes Oxycodone and Oxymorphone Phencyclidine Screen, Urine Negative Cutoff=25 ng/mL N Methadone Screen, Urine Negative Lmeuqi=861 ng/mL N Propoxyphene Screen, Urine Negative Yrbcdq=239 ng/mL N Meperidine Screen, Urine Negative Dyhgcn=508 ng/mL N determined by [employer], [place]. It has not been cleared or approved by the Food and Drug Administration. This test was developed and its performance characteristics Tramadol Screen, Urine Negative Fzjhbr=953 ng/mL N Fentanyl, Urine Negative Bpvofp=4150 pg/mL N This test was developed and its performance characteristics determined by [employer]. It has not been cleared or approved by the Food and Drug Administration. Test includes Fentanyl and Norfentanyl Buprenorphine, Urine Negative Cutoff=10 ng/mL N Creatinine, Urine 163.5 20.0-300.0 mg/dL N Specific [place] 1.019 N pH, Urine 7.4 4.5-8.9 N Please Note: Comment N expected outcome. Drug brands, if listed herein, are trademarks of their respective Drug test results should be interpreted in the context of clinical Email: specimen characteristics can affect test outcome. Technical information. Patient metabolic variables, specific drug chemistry, and owners. consultation is available if a test result is inconsistent with an Chlamydia/Gonorrhea, [place]INT[place] (Ap sharon/PAP) Reviewed date:09/29/2024 08:27:44 AM Interpretation:Normal Performing Lab: Notes/Report: [facility] Testing performed at: [=G] [place] [address] [place], [address], , Cloth Dyeing Range Tender: Maria Teresa Villanueva MD Chlamydia trachomatis, CLINTON [...] Domestic violence: No Do you have any judaism, m oral, or cultural beliefs or customs [...] 09/27/2024 Encounters Encounter Location Date Provider Diagnosis [address] [place] [address] 08/20/2024 Shannan Ocasio [facility] [address] [facility] [address] [place] [address] 09/30/2024 Shannan Amarjit [facility] [address] [facility] [address] [place] [address] 07/19/2024 Pamela Babcock [facility] [address] [facility] [address] [place] [address] 08/19/2024 Pmaela Babcock [facility] [address] [facility] [address] [place] [address] 07/20/2024 Pamela Babcock [facility] exam without abnormal findings Z01.419 ; Encounter for test, result unknown Z32.00 ; Personality disorder F60.9 and Routine screening for STI (sexually transmitted infection) Z11.3 [facility] [address] [facility] [address] [place] [address] 09/27/2024 Shannan Amarjit Encounter for test, result unknown Z32.00 and Encounter for other specified screening Z36.89 Assessments Encounter Date Diagnosis (ICD Code) Assessment Notes Treatment Notes Treatment Clinical Notes Section Notes 07/20/2024 Encounter for test, result unknown (ICD-10 - Z32.00) 07/20/2024 [facility] exam without abnormal findings (ICD-10 - Z01.419) [...] Antibodies, IgG 09/27/2024 Syphilis T Pallidium Screening [place] 0 09/27/2024 *US OB Complete greater than 14 Weeks Tr ansabdominal 09/27/2024 Medical (General) History Medical History History ICD Code Anxiety DEPRESSION UTI-needs [facility] @ [facility]
[2024-12-31 21:00] VITALS: BP 124/81; PULSE 98; RESP 24; O2SAT 99
[2024-12-31 21:25] LABS: Basophils % 0.3 % (0.1-2.0); Eosinophils # 0.1 Kmm3 (0.0-0.4); Eosinophils % 0.8 % (0.1-12.0); Hematocrit 28.7 % (37.0-47.0); Hemoglobin 9.8 g/dL (12.2-16.2); Immature Granulocytes # 0.06 10^3uL; Immature Granulocytes % 0.5 %; Lymphocytes # 2.5 K/mm3 (0.7-4.5); Lymphocytes % 21.7 % (10-50); Mean Corpuscular HGB Conc 34.1 g/dL (31.8-35.4); Mean Corpuscular Hemoglobin 32.7 pg (27.0-31.2); Mean Corpuscular Volume 95.7 fl (81-99); Mean Platelet Volume 9.8 fl (7.4-10.4); Monocytes # 0.9 K/mm3 (0.1-1.0); Monocytes % 7.7 % (1.7-9.3); Neutrophils # 8.1 K/mm3 (1.8-7.8); Nucleated Red Blood Cells # 0 10^3/uL; Nucleated Red Blood Cells % 0 %; Platelet Count 212 K/mm3 (142-424); Red Cell Distribution Width-SD 45.1 fL; White Blood Count 11.7 K/mm3 (4.5-13.0)
[2024-12-31 21:28] LABS: Microscopic, Urine URINE MICROSCOPIC (MICROSCOPIC)
[2024-12-31 21:29] LABS: Bilirubin,Urine Negative (Negative); Blood, Urine Negative (Negative); Color,Urine YELLOW (Yellow); Glucose,Urine (UA) Negative (Negative); Ketones,Urine Negative (Negative); Leukocyte Esterase,Urine Negative (Negative); Nitrate,Urine Negative (Negative); Protein,Urine Negative (Negative); Specific Gravity, Urine 1.015 (1.005-1.030); Urobilinogen,Urine 0.2 EU/dl (0.2)
[2024-12-31 21:32] LABS: Alanine Aminotransferase 11 U/L (12-78); Albumin Level 3.2 g/dl (3.5-5.0); Albumin/Globulin Ratio 1.2 (1.1-1.8); Alkaline Phosphatase 52 U/L (38-126); Anion Gap 10.7 mEq/L (5-15); Aspartate Amino Transferase 19 U/L (14-36); Bilirubin,Total 0.3 mg/dl (0.2-1.3); Blood Urea Nitrogen 6 mg/dl (7-17); Calcium 9.2 mg/dl (8.4-10.2); Carbon Dioxide 22 mmol/L (22.0-30.0); Chloride 105 mmol/L (98-107); Creatinine Clearance Estimated 188 mL/min (50-200); Estimated Glomerular Filt Rate 127 ml/min (>60); GFR (African American) 154 ML/MIN (>60); Globulin 2.7 g/dL (1.3-3.2); Glucose 109 mg/dl (74-100); Magnesium 1.6 mg/dl (1.6-2.3); Potassium 3.7 mmoL/L (3.5-5.1); Sodium 134 mmol/L (136-145); Total Protein,Serum 5.9 g/dl (6.3-8.2)
--- NOTE | 2024-12-31 21:33 | ED_ITS ---
Discharge Plan Disposition Patient Disposition: Home, Self-Care Condition: Good Prescriptions Prescriptions: No Action olanzapine [Zyprexa] 5 mg tablet 5 mg PO DAILY Qty: 30 2RF ondansetron 4 mg tablet,disintegrating 4 mg PO Q6H PRN (Reason: nausea and vomiting) Qty: 60 1RF cetirizine [Zyrtec] 10 mg tablet 10 mg PO DAILY Qty: 30 0RF fluticasone propionate [Flonase Allergy Relief] 50 mcg/actuation spray,suspension 1 spray intranasal DAILY Qty: 16 0RF Rx Instructions: administer into each nostril cefdinir 300 mg capsule 300 mg PO BID 5 Days Qty: 10 0RF Referrals Follow up/Referrals: Provider,Referral, MD [Primary Care Provider, Medical] - See instructions Activity Restrictions/Add. Instructions Additional Instructions/Restrictions: You were evaluated in the emergency department today. At this time, your workup is reassuring. Please follow-up closely with your primary care provider. Your T4 slightly elevated, which is one of your thyroid hormones. They can recheck this to see how it looks on repeat assessment. Return to the emergency department for new or worsening symptoms. Clinical Impressions Clinical Impression: Palpitations, Elevated serum free T4 level Instructions Patient Instructions: DI for Palpitations Print Language Print Language: Senegalese Discharge ED Provider: Shona Quintero General Adult HPI General Chief complaint: Arrhythmia/Palpitations Stated complaint: 19 weeks preg, heart palpatations Time Seen by Provider: 12/31/24 20:54 Mode of Arrival: Ambulatory Source of Information: Patient Description of Symptoms (Recalled from ER Triage Doc. by RN): Pt presents with heart palpitations that has been intermittent over the past 2 weeks. Pt is currently 19 weeks (first ). Denies any chest pain, states she feels a heaviness in chest which she describes as anxiety. History of Present Illness HPI narrative: This patient is a 19-year-old G1, P0 female at estimated 19 weeks gestation presenting to the emergency department for evaluation with concern for palpitations. Patient has had multiple recent ED evaluations for various complaints in the setting of . Patient reports that she is not sure if she is just having anxiety or panic attacks but occasionally she will start having palpitations and feel like her heart is beating out of her chest. It resolved spontaneously. No associated pain or other concerns. She notes she is been eating and drinking okay and has been staying hydrated. She denies other concerns or complaints. Related Data Previous Rx's ?Medication ?Instructions ?Recorded olanzapine 5 mg tablet (Zyprexa) 5 mg PO DAILY #30 tab s 11/05/24 cefdinir 300 mg capsule 300 mg PO BID 5 days #10 cap s 12/17/24 cetirizine 10 mg tablet (Zyrtec) 10 mg PO DAILY #30 ta bs 12/17/24 fluticasone propionate 50 1 spray intranasal DAILY #16 grams 12/17/24 mcg/actuation nasal spray,suspension (Flonase Allergy Relief) ondansetron 4 mg disintegrating 4 mg PO Q6H PRN nausea and 12/28/24 tablet vomiting #60 tabs Allergies Allergy/AdvReac Type Severity Reaction Status Date / Time No Known Allergies Allergy Verified 12/22/24 13:05 [facility] Disclaimer: The information contained in this section may have been updated after the patient was seen, as this information can be updated by other users. Medical History Hx of bipolar disorder History of depression Hx of anxiety disorder Hx of borderline personality disorder Surgical History No significant past surgical history Social History Smoking Status: Never smoker alcohol intake: never current occupational status: unemployed Travel in the last 8 weeks?: None Have you lived/traveled outside US in past 30 days?: No Contact w/someone who lives/traveled outside US past 30 days?: No Exposure to someone with infectious disease in past 14 days?: No Do you have a fever (greater than 100.4 F or 38 C)?: No Have you tested positive for COVID-19?: No Exposed to someone with COVID-19 in past 14 days?: No Do you have a sore throat?: No Do you have a cough?: No Do you have any weakness?: No Do you have any diarrhea?: No Are you experiencing any unusual bleeding?: No Do you have any muscle aches/pain?: No Do you have any abdominal pain?: No Are you experiencing loss of taste or smell?: No ROS Obtained: Yes All systems reviewed & no additional complaints except as documented Physical Exam General General appearance: alert and in no apparent distress Head Head exam: atraumatic and normocephalic Eye Eye exam: Present normal appearance, PERRL and EOMI ENT ENT exam: Present normal exam, normal oropharynx, mucous membranes moist and normal external ear exam Neck Neck exam: Present normal inspection, full ROM and trachea midline; Absent tenderness Chest Chest inspection: Present normal inspection and symmetric chest wall rise; Absent tenderness Respiratory Respiratory exam: Present normal lung sounds bilaterally; Absent respiratory distress, wheezes, stridor or accessory muscle use Cardiovascular Cardiovascular exam: Present regular rate and normal rhythm Abdominal Exam Abdominal exam: Present soft; Absent distention, tenderness or guarding Extremities Exam Extremities exam: Present normal inspection, full ROM and normal capillary refill; Absent tenderness or edema Back Exam Back exam: Present normal inspection and full ROM; Absent tenderness Neurological Exam Neurological exam: Present alert, oriented X3, CN II-XII intact and normal gait; Absent motor sensory deficit Psychiatric Psychiatric exam: Present normal affect and normal mood Skin Skin exam: Present warm and dry Medical Decision Making Medical Records Medical records reviewed: Yes I reviewed the patient's medical records. Screening: Per USPSTF and CDC recommendations, given the prevalence of disease in our region, it is our hospital?s policy to screen for HIV and viral Hepatitis for all patients aged 18 and over and those with ongoing risk factors. Maximo Inquiry Pt receiving controlled substance: No Vital Signs: 12/31/24 20:40 12/31/24 21:00 12/31/24 22:40 Temperature 98.5 F 98.1 F Temperature Source Oral Oral Pulse Rate 98 H 79 Pulse Rate [Left] 100 H Respiratory Rate 20 24 20 Blood Pressure 124/81 116/71 Blood Pressure [Right Arm] 138/83 Blood Pressure Mean 90 Blood Pressure Mean [Right Arm] 101 Blood Pressure Source Automatic Cuff Blood Pressure Source [Right Arm] Automatic Cuff Blood Pressure Position Sitting Blood Pressure Position [Right Arm] Sitting 02 Sat by Pulse Oximetry 100 99 Oxygen Delivery Method Room Air Room Air Lab Data Lab results reviewed: Yes I reviewed the patient's lab results. Lab Results 12/31/24 21:14: WBC 11.7, RBC 3.00 L, Hgb 9.8 L, Hct 28.7 L, MCV 95.7, MCH 32.7 H, MCHC 34.1, RDW 13.0, Plt Count 212, MPV 9.8, Neut % (Auto) 69.0, Lymph % (Auto) 21.7, [place] % (Auto) 7.7, Eos % (Auto) 0.8, Baso % (Auto) 0.3, Neut # (Auto) 8.1 H, Lymph # (Auto) 2.5, [place] # (Auto) 0.9, Eos # (Auto) 0.1, Baso # (Auto) 0.0, Sodium 134 L, Potassium 3.7, Chloride 105, Carbon Dioxide 22, Anion Gap 10.7, BUN 6 L, Creatinine 0.60, Estimated Creat Clear 188, Estimated GFR 127, Est GFR ( Amer) 154, Glucose 109 H, Calcium 9.2, Magnesium 1.6, Total Bilirubin 0.3, AST 19, ALT 11 L, Alkaline Phosphatase 52, Total Protein 5.9 L, Albumin 3.2 L, Globulin 2.7, Albumin/Globulin Ratio 1.2, TSH 1.05, T hyroxine (T4) 15.5 H 12/31/24 21:24: Urine Color Yellow, Urine Appearance Slightly cloudy, Urine pH 7.0, Ur Specific [place] 1.015, Urine Protein Negative, Urine Glucose (UA) Negative, Urine Ketones Negative, Urine Blood Negative, Urine Nitrate Negative, Urine Bilirubin Negative, Urine Urobilinogen 0.2, Ur Leukocyte Esterase Negative 12/31/24 21:14 12/31/24 21:14 Orders (Tests/Meds): ORDERS Category Date Time Status CBC w/Auto Diff [Complete Blood Count Auto Diff] Stat Lab 12/31/24 21:14 Completed CMP [Comprehensive Metabolic Panel] Stat Lab 12/31/24 21:14 Completed MAG [Magnesium] Stat Lab 12/31/24 21:14 Completed T4 (Thyroxine) Stat Lab 12/31/24 21:14 Completed TSH [Thyroid Stimulating Hormone] Stat Lab 12/31/24 21:14 Completed UA [Urinalysis and Microscopic] Stat Lab 12/31/24 21:24 Results ECG Data Tracing #1: I reviewed this ECG and interpreted as documented below: Normal sinus rhythm with a ventricular rate of [address] changes concerning for STEMI. Normal intervals. ECG initial impression date: 12/31/24 ECG initial impression time: 20:50 Medical Decision Narrative: In summary, this patient is a 19-year-old female who is currently 19 weeks presenting to the Emergency Department for evaluation of palpitations that are intermittent. Differential diagnoses considered include but are not limited to anxiety, dysrhythmia, hyperthyroidism, electrolyte derangements, dehydration. Ruling out the most morbid conditions drove assessment. It should be noted patient's history includes anxiety, bipolar disorder which may or may not be at goal therapy. This complicates all aspects of care by increasing patient's risk for morbidity. I reviewed patient's past medical records and noted multiple recent ED evaluations for various complaints in the setting of as well as prior OB evaluations. On exam, the patient is very well-appearing. She sitting upright in no acute distress with normal vitals on cardiac telemetry. She is nontachypneic, nontachycardic, nonhypoxic. Cardiopulmonary exam is reassuring. EKG obtained is also reassuring. workup included CBC, CMP, TSH, T4, magnesium, urinalysis.. Based on description of symptoms and the fact that patient thinks it is when she is anxious, I feel it likely is related to anxiety, but we will continue to monitor home cardiac telemetry at this time. On reassessment, the patient is resting comfortably with again normal vital signs on cardiac telemetry. EKG is reassuring, labs demonstrate chronic anemia but nothing actionable at this time. She has very mild hyponatremia, mildly elevated T4 with normal TSH. I do not feel that she clinically has any symptoms/signs of hypothyroidism or thyroid storm and is appropriate for discharge home with close follow-up with PCP for recheck. She is given instructions for this. I feel anxiety likely explains her symptoms given how she describes them and baseline history of anxiety as well. She was discharged with strict return precautions. Critical Care Critical Care Time Critical Care Time: No
[2024-12-31 21:46] LABS: Appearance,Urine Slightly Cloudy (Clear)
[2024-12-31 21:50] LABS: T4 (Thyroxine) 15.5 ug/dl (5.53-11.0)
[2024-12-31 22:03] LABS: Thyroid Stimulating Hormone 1.05 uIU/mL (0.465-4.68)
[2024-12-31 22:40] VITALS: BP 116/71; PULSE 79; RESP 20; TEMP 36.7; O2SAT 99
[2025-01-01 05:48] LABS: Bacteria,Urine 2+ /lpf; Calcium Oxalate Crystals,Urine 1+ /lpf; Squamous Epithelial Cell,Urine Occasional #/hpf (0-5); WBC,Urine Occasional #/hpf (0-3)
[2025-01-01 05:49] LABS: Amorphous Sediment,Urine 2+ /lpf
== END 2024-12-31 22:42 | disposition home or self-care (01) ==
PROVIDERS: Emergency Provider Emergency Medicine
DX: O26.892 Other specified pregnancy related conditions, second trimester (principal); R00.2 Palpitations; R94.6 Abnormal results of thyroid function studies; Z3A.19 19 weeks gestation of pregnancy
CPT/HCPCS: 80053; 81001; 83735; 84436; 84443; 85025; 87086; 93005; 99283

== ENCOUNTER 2025-01-06 10:23 | Outpatient (CLI) | payer OTHER, SELFPAY ==
--- OUTSIDE RECORDS SUMMARY | 2025-01-06 10:26 | XMS_ITS | Clinical Summary ---
Author Organization [facility] Address [address] [place] [phone] Care Team Providers Care Ventilation Equipment Tender Name Role Phone Ailyn Rivera MD Primary [...] age to complete this topic Care Teams Ventilation Equipment Tender Relationship Specialty Start Date End Date Ailyn Rivera MD PCP - General Internal Medicine 07/06/24
--- OUTSIDE RECORDS SUMMARY | 2025-01-06 10:26 | XMS_ITS | Patient Health Record ---
Author Organization [facility], [place] Address [address] [place] [address] Care Team Providers Care Thermal Molder Name Role Phone Shannan Ocasio Unavailable [phone] YokoPamela Unavailable [phone] Allergies No Known Allergies Results Component Value Reference Range Flag Notes Chlamydia/Gonorrhea, CLINTON (Ap sharon/PAP) Reviewed date:07/21/2024 06:23:09 PM Interpretation:Normal Performing Lab:Natasha CROSS [facility] [place] CLIA ID [id number], [id number] [facility], [address], [place] [address], Director - Feroz Michael MD Notes/Report: Chlamydia Trachomatis Negative Negative Neisseria Gonorrhoeae Negative Negative Urine Reviewed date:07/20/2024 12:27:40 PM Interpretation:Negative Performing Lab: Notes/Report: Urine Reviewed date:09/27/2024 04:50:48 PM Interpretation:Positive Performing Lab: Notes/Report: Urine Culture and Sensitivit y Reviewed date:09/30/2024 07:08:46 PM Interpretation:Abnormal Performing Lab: Notes/Report: [facility] Testing performed at: [] [facility], [address] [place] [address], [phone], , Outcomes Specialist: Vignesh Manuel, PhD Urine Culture, Routine Final report A Result 1 Escherichia coli A oral agents cefaclor, cefdinir, cefpodoxime, cefprozil, Cefazolin with an NITHYA <=16 predicts susceptibility to the cefuroxime, cephalexin, and loracarbef when used for therapy of uncomplicated urinary tract infections due to E. coli, Klebsiella pneumoniae, and Proteus mirabilis. Greater than 100,000 colony forming units per mL Antimicrobial Susceptibility Comment N Ciprofloxacin S Cefazolin S Antibiotic RSLT#1 RSLT#2 RSLT#3 RSLT#4 Nitrofurantoin S Cefpodoxime S P = Positive; N = Negative Levofloxacin S S = Susceptible; I = Intermediate; R = Resistant Gentamicin S Ampicillin S Cefoxitin S Ceftriaxone S Meropenem S Tetracycline S Trimethoprim/Sulfa S Tobramycin S MICS are expressed in micrograms per mL Piperacillin/Tazobacta m S Amoxicillin/Clavulanic Acid S Cefepime S Ertapenem S Drug Profile Screen, Urine Reviewed date:10/01/2024 05:14:50 PM Interpretation:Normal Performing Lab: Notes/Report: [facility] performed at: [facility]UI[facility], [address] [place] [address], [phone], , Outcomes Specialist: Marbella Corrales, PhD Testing performed at: [CB] [facility] [place], [address] [place] [address], [phone], , Outcomes Specialist: Vignesh Manuel, PhD QNS: UNABLE TO COMPLETE TEST Amphetamines Screen, Urine Negative Dqgqbw=2757 ng/mL N Barbiturates Screen, Urine Negative Yjfxza=694 ng/mL N Benzodiazepines Screen, Urine Negative Kzlzkb=462 ng/mL N Cannabinoid Screen, Urine See Final Results Cutoff=20 ng/mL N Cannabinoid Test Not Performed. N Test not performed. Insufficient specimen to perform or complete analysis. Cocaine (Metab.) Screen, Urine Negative Ovrkkh=640 ng/mL N Opiate Screen, Urine Negative Yvkmft=833 ng/mL N Opiate test includes Codeine, Morphine, Hydromorphone, Hydrocodone. Oxycodone/Oxymorphone, Urine Negative Qkefnp=324 ng/mL N Test includes Oxycodone and Oxymorphone Phencyclidine Screen, Urine Negative Cutoff=25 ng/mL N Methadone Screen, Urine Negative Lrilbm=352 ng/mL N Propoxyphene Screen, Urine Negative Lexokn=224 ng/mL N Meperidine Screen, Urine Negative Lesytw=932 ng/mL N determined by [facility]. It has not been cleared or approved by the Food and Drug Administration. This test was developed and its performance characteristics Tramadol Screen, Urine Negative Cogdgn=006 ng/mL N Fentanyl, Urine Negative Fbjhgw=7678 pg/mL N This test was developed and its performance characteristics determined by [employer]. It has not been cleared or Test includes Fentanyl and Norfentanyl approved by the Food and Drug Administration. Buprenorphine, Urine Negative Cutoff=10 ng/mL N Creatinine, Urine 163.5 20.0-300.0 mg/dL N Specific [place] 1.019 N pH, Urine 7.4 4.5-8.9 N Please Note: Comment N expected outcome. Drug brands, if listed herein, are trademarks of their respective Drug test results should be interpreted in the context of clinical specimen characteristics can affect test outcome. Technical Email: [email or web address]. Patient metabolic variables, specific drug chemistry, and consultation is available if a test result is inconsistent with an Chlamydia/Gonorrhea, CLINTON (Ap sharon/PAP) Reviewed date:09/29/2024 08:27:44 AM Interpretation:Normal Performing Lab: Notes/Report: [facility] Testing performed at: [=G] [facility], [phone], , Outcomes Specialist: Maria Teresa Villanueva MD Chlamydia trachomatis, CLINTON Negative Negative N Neisseria gonorrhoeae, CLINTON Negative Negative N Specimen Status Report Reviewed date:10/01/2024 05:14:50 PM Interpretation: Performing Lab: Notes/Report: [facility] Testing performed at: [UI] [facility], [facility] [place], [phone], , Outcomes Specialist: Marbella Corrales, PhD Testing performed at: [CB] [facility], [address] [place] [address], [phone], , Outcomes Specialist: Vignesh Manuel, PhD QNS: UNABLE TO COMPLETE TEST Specimen Status Report Test Not Performed. N Test not performed. Insufficient specimen to perform or complete analysis. TEST: [id number] Carbox[employer] THC Conf, MS, UR Panel: [id number] Reason For Referral No Information Medications Medication [...] Domestic violence: No Do you have any mandaeism, m oral, or cultural beliefs or customs that your provider should know about? No Would you object to blood products in the event of an emergency? No Problems Problem Type SNOMED Code ICD Code Onset Dates Problem Status W/U Status Risk Notes Problem Personality disorder (60270531) Personality disorder (F60.9) Active confirmed Vital Signs Blood pressure diastolic 74 mm Hg 09/27/2024 Height 5FT 1IN in 09/27/2024 Blood pressure systolic 112 mm Hg 09/27/2024 Weight 184 lbs 09/27/2024 BMI 34.76 kg/m2 09/27/2024 Encounters Encounter Location Date Provider Diagnosis [facility] [address] [facility] [place] [address] 08/20/[address] [facility] [address] [facility] [address] [place] [address] 09/30/[address] [facility] [address] [facility] [address] [place] [address] 07/19/2024 Pamela Babcock [address] [place] [address] 08/19/2024 Pamela Babcock [address] [place] [address] 07/20/2024 Pamela Babcock Virtual Reality Specialist exam without abnormal findings Z01.419 ; Encounter for test, result unknown Z32.00 ; Personality disorder F60.9 and Routine screening for STI (sexually transmitted infection) Z11.[address] [place] [address] 09/27/2024 Shannan Amarjit Encounter for test, result unknown Z32.00 and Encounter for other specified screening Z36.89 Assessments Encounter Date Diagnosis (ICD Code) Assessment Notes Treatment Notes Treatment Clinical Notes Section Notes 07/20/2024 Encounter for test, result unknown (ICD-10 - Z32.00) 07/20/2024 Virtual Reality Specialist exam without abnormal findings (ICD-10 - Z01.419) [...] Antibodies, IgG 09/27/2024 Syphilis T Pallidium Screening [place] 0 09/27/2024 *US OB Complete greater than 14 Weeks Tr ansabdominal 09/27/2024 Medical (General) History Medical History History ICD Code Anxiety DEPRESSION UTI-needs [facility] @ [facility]
--- OUTSIDE RECORDS SUMMARY | 2025-01-06 10:26 | XMS_ITS | Referral Summary ---
Author Organization [facility] Address [address] [place] [phone] Care Team Providers Care Cupola Worker Name Role Phone Ailyn Rievra MD Primary Care Provid er Allergies No [...] IM (Act HIB, Hiberix) 04/08/2006,2004,2004 Human Papillomavirus 9-Hannha t (Gardasil 9) 02/09/2021,09/04/2020,06/05/2020 Influenza Vaccine, Recombina [...] of Treatment Not on file Care Teams Cupola Worker Relationship Specialty Start Date End Date Ailyn Rivera MD PCP - General Internal Medicine 07/06/24
--- NOTE | 2025-01-06 10:30 | US_ITS ---
PROCEDURE: US OB /MATERNAL DETAIL CLINICAL INDICATION: 20 wk : schedule in 6 weeks COMPARISON: US POINT OF CARE US (ER ONLY) from 10/22/2024 US POINT OF CARE US (ER ONLY) from 12/21/2024 US POINT OF CARE US (ER ONLY) from 12/27/2024 FINDINGS: Transabdominal sonographic images of the pelvis were obtained. From her established due date she is 20 weeks 1 day. Single viable intrauterine gestation. Cephalic position. Placenta: Posteriorplacenta grade 1. There is an average amount of fluid. The cervix appears satisfactory. Closed and measuring 4.49 cm in length. Complete survey performed and was unremarkable on the submitted images as in PACS. No discrete anomalies identified on survey imaging by technologist. Active fetus. Three-vessel cord with satisfactory umbilical cord insertion. 4- chamber heart noted. Situs, aortic arch, LVOT, RVOT, three-vessel view appear normal. Survey of brain & ventricles Unremarkable. Cerebellum, thalamus, choroid plexus, cisterna magna appear normal. Face and neck survey unremarkable. Profile, nasion, lips and nose appeared normal. Diaphragm and chest views unremarkable. Abdomen: Both kidneys noted and unremarkable. Stomach and bladder noted and satisfactory. Spine: Survey of the spine satisfactory with no anomalies identified nor imaged. Cervical, thoracic, lower spine appear normal. Both arms and legs noted. Amniotic Fluid: Adequate. MVP 3.60 cm Measurements: Average ultrasound age 20weeks 2days. Estimated due date by ultrasound age 1105/24/2025. Estimated weight 340g BPD = 20weeks 3days HC = 20weeks 1day AC = 20weeks 2days FL = 20weeks 2days Growth Percentile= 49 Heart Rate = 152bpm Cerebellum = 19weeks 4days Humerus = 20weeks 5days HC/AC is 1.17 FL/BPD is 0.69 FL/AC is 0.22 IMPRESSION: 1. Viable fetus in the cephalic presentation with a posterior placenta grade 1. 2. The fluid is within normal limits with an MVP 3.60 cm. 3. Anatomical scan appears normal. 4. biometry is consistent with the dates. Dictated by: Ovi Martin MD 01/07/2025 05:12 Ovi Martin MD in [place] 01/07/2025 05:12
== END 2025-01-06 23:59 | disposition home or self-care (01) ==
LOC: RAD 10:24
PROVIDERS: Visit Provider Obstetrics & Gynecology
DX: Z34.02 Encounter for supervision of normal first pregnancy, second trimester (principal); Z3A.20 20 weeks gestation of pregnancy
CPT/HCPCS: 76811

== ENCOUNTER 2025-01-06 21:42 | Emergency (ER) | payer OTHER, SELFPAY ==
[2025-01-06 21:50] VITALS: BP 122/80; PULSE 118; RESP 16; TEMP 36.9; O2SAT 99; BMI 33.8
--- OUTSIDE RECORDS SUMMARY | 2025-01-06 22:00 | XMS_ITS | Clinical Summary ---
Author Organization [facility] Address [address] [place] [address] Care Team Providers Care Monomer Purification Operator Name Role Phone Ailyn Rivera MD [...] age to complete this topic Care Teams Monomer Purification Operator Relationship Specialty Start Date End Date Ailyn Rivera MD PCP - General Internal Medicine 07/06/24
--- OUTSIDE RECORDS SUMMARY | 2025-01-06 22:00 | XMS_ITS | Referral Summary ---
Author Organization [facility] Address [address] [place] [address] Care Team Providers Care Director Of Golf Name Role Phone Ailyn Rivera MD Primary [...] of Treatment Not on file Care Teams Director Of Golf Relationship Specialty Start Date End Date Ailyn Rivera MD PCP - General Internal Medicine 07/06/24
[2025-01-06 22:01] LABS: Coronavirus 19, PCR Not Detected (NotDetected); Influenza A, PCR Not Detected (NotDetected); Influenza B, PCR Not Detected (NotDetected)
[2025-01-06] MEDS: diphenhydrAMINE 50MG/ML VIAL 50 MG IV (22:42)
[2025-01-06] MEDS: ACETAMINOPHEN 1,000MG/100ML VIAL 1000 MG IV (22:42)
[2025-01-06] MEDS: DEXAMETHASONE 4MG/ML 1ML VIAL 8 MG IV (22:42)
[2025-01-06] MEDS: METOCLOPRAMIDE HCL 10MG/2ML VIAL 5 MG IVP (22:42)
[2025-01-06] MEDS: LACTATED RINGERS 1000ML 1,000 ML 999 ML IV (22:43)
[2025-01-06 22:51] LABS: Basophils % 0.2 % (0.1-2.0); Eosinophils # 0.2 Kmm3 (0.0-0.4); Eosinophils % 1.3 % (0.1-12.0); Hematocrit 28.3 % (37.0-47.0); Hemoglobin 9.7 g/dL (12.2-16.2); Immature Granulocytes # 0.07 10^3uL; Immature Granulocytes % 0.5 %; Lymphocytes # 2.3 K/mm3 (0.7-4.5); Lymphocytes % 17.7 % (10-50); Mean Corpuscular HGB Conc 34.3 g/dL (31.8-35.4); Mean Corpuscular Hemoglobin 32.7 pg (27.0-31.2); Mean Corpuscular Volume 95.3 fl (81-99); Monocytes # 0.9 K/mm3 (0.1-1.0); Monocytes % 6.8 % (1.7-9.3); Neutrophils # 9.4 K/mm3 (1.8-7.8); Neutrophils % 73.5 % (37.0-80.0); Nucleated Red Blood Cells # 0 10^3/uL; Nucleated Red Blood Cells % 0 %; Platelet Count 220 K/mm3 (142-424); Red Blood Count 2.97 M/mm3 (4.20-5.40); Red Cell Distribution Width 13.2 % (11.5-17.5); Red Cell Distribution Width-SD 45.4 fL; White Blood Count 12.8 K/mm3 (4.5-13.0)
[2025-01-06 23:03] LABS: Alanine Aminotransferase 12 U/L (12-78); Albumin Level 3.7 g/dl (3.5-5.0); Albumin/Globulin Ratio 1.6 (1.1-1.8); Alkaline Phosphatase 58 U/L (38-126); Anion Gap 10.4 mEq/L (5-15); Aspartate Amino Transferase 22 U/L (14-36); Bilirubin,Total 0.4 mg/dl (0.2-1.3); Blood Urea Nitrogen 5 mg/dl (7-17); Calcium 9.6 mg/dl (8.4-10.2); Carbon Dioxide 23 mmol/L (22.0-30.0); Chloride 103 mmol/L (98-107); Creatinine Clearance Estimated 192 mL/min (50-200); Estimated Glomerular Filt Rate 127 ml/min (>60); GFR (African American) 154 ML/MIN (>60); Globulin 2.3 g/dL (1.3-3.2); Glucose 116 mg/dl (74-100); Potassium 3.4 mmoL/L (3.5-5.1); Sodium 133 mmol/L (136-145)
--- NOTE | 2025-01-06 23:24 | ED_ITS ---
Discharge Plan Disposition Patient Disposition: Home, Self-Care Condition: Good Prescriptions Prescriptions: No Action olanzapine [Zyprexa] 5 mg tablet 5 mg PO DAILY Qty: 30 2RF ondansetron 4 mg tablet,disintegrating 4 mg PO Q6H PRN (Reason: nausea and vomiting) Qty: 60 1RF cetirizine [Zyrtec] 10 mg tablet 10 mg PO DAILY Qty: 30 0RF fluticasone propionate [Flonase Allergy Relief] 50 mcg/actuation spray,suspension 1 spray intranasal DAILY Qty: 16 0RF Rx Instructions: administer into each nostril cefdinir 300 mg capsule 300 mg PO BID 5 Days Qty: 10 0RF Referrals Follow up/Referrals: Yrn Lang DO [Primary Care Provider, Family Practice] - See instructions Activity Restrictions/Add. Instructions Additional Instructions/Restrictions: You were evaluated in the emergency department today. Make sure you stay hydrated. Follow-up closely with your primary care provider as well as with your PROGRESSIVE CARE NURSE. Return to the emergency department for new or worsening symptoms. Clinical Impressions Clinical Impression: Headache Instructions Patient Instructions: Cough, DI for Headache Print Language Print Language: Nigerien Discharge ED Provider: Shona Quintero General Adult HPI General Chief complaint: Cough Stated complaint: cough,morning sickness,headache Time Seen by Provider: 01/06/25 22:17 Mode of Arrival: Ambulatory Source of Information: Patient Description of Symptoms (Recalled from ER Triage Doc. by RN): Pt presents with c/o dry hacking cough that is causing her to gag. Pt denies fevers, chest pain. Reports to being 20 weeks , denies any c/o with . History of Present Illness HPI narrative: This patient is a 19-year-old female who is currently 20 weeks presenting to the emergency department for evaluation with concern for dry hacking cough is causing her to gag, headache, and morning sickness. She states that she tried taking Tylenol at home for symptoms but is not feeling any better. No other concerns or complaints noted. Related Data Previous Rx's ?Medication ?Instructions ?Recorded olanzapine 5 mg tablet (Zyprexa) 5 mg PO DAILY #30 tab s 11/05/24 cefdinir 300 mg capsule 300 mg PO BID 5 days #10 cap s 12/17/24 cetirizine 10 mg tablet (Zyrtec) 10 mg PO DAILY #30 ta bs 12/17/24 fluticasone propionate 50 1 spray intranasal DAILY #16 grams 12/17/24 mcg/actuation nasal spray,suspension (Flonase Allergy Relief) ondansetron 4 mg disintegrating 4 mg PO Q6H PRN nausea and 12/28/24 tablet vomiting #60 tabs Allergies Allergy/AdvReac Type Severity Reaction Status Date / Time No Known Allergies Allergy Verified 12/22/24 13:05 [facility] Disclaimer: The information contained in this section may have been updated after the patient was seen, as this information can be updated by other users. Medical History Hx of bipolar disorder History of depression Hx of anxiety disorder Hx of borderline personality disorder Surgical History No significant past surgical history Social History Smoking Status: Former smoker alcohol intake: never current occupational status: unemployed Travel in the last 8 weeks?: None Have you lived/traveled outside US in past 30 days?: No Contact w/someone who lives/traveled outside US past 30 days?: No Exposure to someone with infectious disease in past 14 days?: No Do you have a fever (greater than 100.4 F or 38 C)?: No Have you tested positive for COVID-19?: No Exposed to someone with COVID-19 in past 14 days?: No Do you have a sore throat?: Yes Do you have a cough?: Yes Do you have any weakness?: Yes Do you have any diarrhea?: No Are you experiencing any unusual bleeding?: No Do you have any muscle aches/pain?: No Do you have any abdominal pain?: No Are you experiencing loss of taste or smell?: No ROS Obtained: Yes All systems reviewed & no additional complaints except as documented Physical Exam General General appearance: alert and in no apparent distress Head Head exam: atraumatic and normocephalic Eye Eye exam: Present normal appearance, PERRL and EOMI ENT ENT exam: Present normal exam, normal oropharynx, mucous membranes moist and normal external ear exam Neck Neck exam: Present normal inspection, full ROM and trachea midline; Absent tenderness Chest Chest inspection: Present normal inspection and symmetric chest wall rise; Absent tenderness Respiratory Respiratory exam: Present normal lung sounds bilaterally; Absent respiratory distress, wheezes, stridor or accessory muscle use Cardiovascular Cardiovascular exam: Present normal rhythm and tachycardia Abdominal Exam Abdominal exam: Present soft; Absent distention, tenderness or guarding Extremities Exam Extremities exam: Present normal inspection, full ROM and normal capillary refill; Absent tenderness or edema Back Exam Back exam: Present normal inspection and full ROM; Absent tenderness Neurological Exam Neurological exam: Present alert, oriented X3, CN II-XII intact and normal gait; Absent motor sensory deficit Psychiatric Psychiatric exam: Present normal affect and normal mood Skin Skin exam: Present warm and dry Medical Decision Making Medical Records Medical records reviewed: Yes I reviewed the patient's medical records. Screening: Per USPSTF and CDC recommendations, given the prevalence of disease in our region, it is our hospital?s policy to screen for HIV and viral Hepatitis for all patients aged 18 and over and those with ongoing risk factors. Maximo Inquiry Pt receiving controlled substance: No Vital Signs: 01/06/25 21:50 Temperature 98.5 F Temperature Source Oral Pulse Rate [Radial] 118 H Respiratory Rate 16 Blood Pressure [Right Arm] 122/80 Blood Pressure Mean [Right Arm] 94 Blood Pressure Position [Right Arm] Sitting 02 Sat by Pulse Oximetry 99 Oxygen Delivery Method Room Air Lab Data Lab results reviewed: Yes I reviewed the patient's lab results. Lab Results 01/06/25 21:55: SARS-CoV-2 (PCR) Not detected, Influenza A Untype (PCR) Not detected, Influenza Type B (PCR) Not detected 01/06/25 22:39: WBC 12.8, RBC 2.97 L, Hgb 9.7 L, Hct 28.3 L, MCV 95.3, MCH 32.7 H, MCHC 34.3, RDW 13.2, Plt Count 220, MPV 10.0, Neut % (Auto) 73.5, Lymph % (Auto) 17.7, [place] % (Auto) 6.8, Eos % (Auto) 1.3, Baso % (Auto) 0.2, Neut # (Auto) 9.4 H, Lymph # (Auto) 2.3, [place] # (Auto) 0.9, Eos # (Auto) 0.2, Baso # (Auto) 0.0, Sodium 133 L, Potassium 3.4 L, Chloride 103, Carbon Dioxide 23, Anion Gap 10.4, BUN 5 L, Creatinine 0.60, Estimated Creat Clear 192, Estimated GFR 127, Est GFR ( Amer) 154, Glucose 116 H, Calcium 9.6, Total Bilirubin 0.4, AST 22, ALT 12, Alkaline Phosphatase 58, Total Protein 6.0 L, Albumin 3.7, Globulin 2.3, Albumin/Globulin Ratio 1.6 01/06/25 22:39 01/06/25 22:39 Orders (Tests/Meds): ED MEDICATIONS Generic Name Dose Route Start Last Admin Trade Name Freq PRN Reason Stop Dose Admin Lactated Ringer's 1,000 mls @ 999 mls/hr 01/06/25 22:32 01/06/25 22:43 Lactated Ringer's 1000 Ml Bag IV 01/06/25 23:32 999 mls/hr .Q1H1M ONE Administration Discontinued Medications Generic Name Dose Route Start Last Admin Trade Name Freq PRN Reason Stop Dose Admin Acetaminophen 1,000 mg 01/06/25 22:32 01/06/25 22:42 Acetaminophen 1,000mg/100ml Vial IV 01/06/25 22:33 1,000 mg ONCE ONE Administration Dexamethasone Sodium Phosphate 8 mg 01/06/25 22:32 01/06/25 22:42 Dexamethasone 4mg/Ml 1ml Vial IV 01/06/25 22:33 8 mg ONCE ONE Administration Diphenhydramine HCl 50 mg 01/06/25 22:32 01/06/25 22:42 Diphenhydramine 50mg/Ml Vial IV 01/06/25 22:33 50 mg ONCE ONE Administration Metoclopramide HCl 5 mg 01/06/25 22:32 01/06/25 22:42 Metoclopramide Hcl 10mg/2ml Vial IVP 01/06/25 22:33 5 mg ONCE ONE Administration ORDERS Category Date Time Status CBC w/Auto Diff [Complete Blood Count Auto Diff] Stat Lab 01/06/25 22:39 Completed CMP [Comprehensive Metabolic Panel] Stat Lab 01/06/25 22:39 Completed Rapid PCR Covid and Flu A/B Stat Lab 01/06/25 21:55 Completed UA [Urinalysis and Microscopic] Stat Lab 01/06/25 22:32 Ordered Medical Decision Narrative: In summary, this patient is a 19-year-old female presenting to the Emergency Department for evaluation of cough, congestion, headache, morning sickness. Differential diagnoses considered include but are not limited to viral syndrome, pneumonia, respiratory failure, migraine, tension headache, preeclampsia, dehydration. Ruling out the most morbid conditions drove assessment. I reviewed patient's past medical records and noted multiple previous ED visits for various complaints in the setting of over the last several weeks. On exam, the patient is well-appearing. She sitting upright in no acute distress and is neurologically intact. She is mildly tachycardic but otherwise normotensive, reassuring vitals on cardiac telemetry. Cardiopulmonary exam is normal. Abdominal exam is benign. Workup included CBC, CMP. She was given a bolus of IV fluids as well as IV Reglan, Benadryl, acetaminophen, and dexamethasone.. Labs obtained are very reassuring and on reassessment she is feeling a lot better. Given this, I feel that she is appropriate for discharge home with instruction for supportive care of likely headache in the setting of either viral syndrome or dehydration. She return precautions were given as well as instructions for close PCP and PROGRESSIVE CARE NURSE follow-up Critical Care Critical Care Time Critical Care Time: No
[2025-01-06 23:29] VITALS: BP 104/70; PULSE 70; RESP 18; TEMP 37.2; O2SAT 100
[2025-01-07 11:15] LABS: Free T4 (Free Thyroxine) 1.05 ng/dl (0.78-2.19)
== END 2025-01-06 23:30 | disposition home or self-care (01) ==
PROVIDERS: Emergency Provider Emergency Medicine; PCP Internal Medicine
DX: R51.9 Headache, unspecified (principal); Z87.891 Personal history of nicotine dependence
CPT/HCPCS: 80053; 84439; 85025; 87636; 96361; 96374; 96375; 99285; J0131; J1100; J1200; J2765; J7120